=== PATIENT | female | born 1960 | race Caucasian/White ===

== ENCOUNTER → 2022-01-16 07:53 | Outpatient (BNVA) | payer BC, SELFPAY | PROVIDERS: PCP Internal Medicine; Visit Provider Orthopaedic Surgery | DX: M67.431 Ganglion, right wrist (principal) | CPT/HCPCS: 20612 ==

== ENCOUNTER 2022-05-30 06:43 | Outpatient (REF) | payer BC, SELFPAY ==
[2022-05-30 06:56] LABS: MANUAL DIFF FLAG NO
[2022-05-30 07:38] LABS: Basophils Absolute Auto 0.1 X10*3/uL (0.0-0.2); Basophils Percent Auto 1.3 % (0-2); Eosinophils Absolute Auto 0.3 X10*3/uL (0.0-0.4); Eosinophils Percent Auto 6.9 % (0-4); Hematocrit 42.7 % (37.0-47.0); Imm Gran Abs Auto 0.02 X10*3/uL (0.00-0.03); Imm Gran Pct Auto 0.4 % (0.0-0.4); Lymphocytes Absolute Auto 1.1 X10*3/uL (1.2-4.9); Lymphocytes Percent Auto 22.5 % (20-40); Mean Corpuscular HGB Conc 32.8 g/dl (31.0-35.0); Mean Corpuscular Hemoglobin 28.9 pg (27.0-33.0); Mean Platelet Volume 9.7 fL (9.4-12.3); Monocytes Absolute Auto 0.6 X10*3/uL (0.1-1.2); Neutrophils Absolute Auto 2.7 x10*3/uL (2.0-8.3); Neutrophils Percent Auto 56.9 % (45-73); Platelet Count 320 X10*3/uL (160-400); Red Blood Count 4.85 X10*6/uL (4.20-5.50); Red Cell Distribution Width 13.4 % (11.0-16.0); White Blood Count 4.8 X10*3/uL (4.8-10.8)
[2022-05-30 07:50] LABS: Alanine Aminotransferase 16 U/L (0-31); Albumin Level 4.4 g/dL (3.5-5.0); Alkaline Phosphatase 53 U/L (39-117); Anion Gap 15 (12-20); Aspartate Amino Transferase 20 U/L (5-31); Bilirubin Total 0.5 mg/dL (0.0-1.0); Blood Urea Nitrogen 14 mg/dL (9-16); Calcium 10.1 mg/dL (8.4-10.2); Carbon Dioxide 27 mmol/L (22-29); Chloride 103 mmol/L (96-108); Cholesterol 322 mg/dL; Estimated Glomerular Filt Rate > 60; Glucose Fasting 103 mg/dL (60-99); HDL Cholesterol 83 mg/dL; LDL Cholesterol Calculated 222 mg/dl; Potassium 4.4 mmol/L (3.3-5.1); Sodium 141 mmol/L (135-145); Total Protein 7.3 g/dL (6.5-8.0); Triglycerides 85 mg/dL
== END 2022-05-30 06:44 | disposition home or self-care (01) ==
LOC: HO.LAB 06:43
PROVIDERS: PCP Internal Medicine; Visit Provider Internal Medicine
DX: E03.9 Hypothyroidism, unspecified (principal); I10 Essential (primary) hypertension; E78.5 Hyperlipidemia, unspecified; Z13.0 Encounter for screening for diseases of the blood and blood-forming organs and certain disorders involving the immune mechanism
CPT/HCPCS: 36415; 80053; 80061; 84443; 85025

== ENCOUNTER 2022-11-11 10:47 | Outpatient (REF) | payer BC, SELFPAY ==
[2022-11-11 12:19] LABS: Estimated Average Glucose 108 mg/dL; Hemoglobin A1c % 5.4 %
[2022-11-11 12:34] LABS: Cholesterol 223 mg/dL; HDL Cholesterol 83 mg/dL; LDL Cholesterol Calculated 127 mg/dl; Triglycerides 65 mg/dL
== END 2022-11-11 10:48 | disposition home or self-care (01) ==
LOC: HO.LAB 10:47
PROVIDERS: PCP Internal Medicine; Visit Provider Internal Medicine
DX: R73.9 Hyperglycemia, unspecified (principal); E78.5 Hyperlipidemia, unspecified
CPT/HCPCS: 36415; 80061; 83036

== ENCOUNTER 2023-04-28 07:50 | Outpatient (AMB) | payer BC, SELFPAY ==
[2023-04-28 08:22] VITALS: BP 108/72; PULSE 57; O2SAT 98; BMI 22.2
--- NOTE | 2023-04-28 08:22 | MHC.PC.OV ---
Vital Signs 04/28/23 08:22 Height 5 ft 7 in Weight 142 lb BMI 22.2 BP 108/72 Blood Pressure Location Lt brachial Position Sitting Pulse 57 Pulse Source Pulse Oximeter Pulse Oximetry (%) 98 Oxygen Delivery Method Room Air Intake Visit Reasons: Med. 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 F/U HPI Details chronic back pain; stable; receives injections at [facility] Surgical History Hx of cervical polypectomy Family History Father Lung cancer Mother No problems noted. Social History Housing: House Alcohol intake: never Patient Tobacco Use Status: Never used Tobacco e-Cigarette/Vaping Use: Never Used Second Hand Smoke Exposure: No service: No Current occupational status: retired Current occupational exposures/hazards: No Cognitive needs: No Hearing needs: No Vision needs: No Questionnaire PHQ-9 Over the last 2 weeks, how often have you been bothered by any of the following problems? 1. Little interest or pleasure in doing things: not at all 2. Feeling down, depressed, or hopeless: not at all 3. Trouble falling or staying asleep, or sleeping too much: not at all 4. Feeling tired or having little energy: not at all 5. Poor appetite or overeating: not at all 6. Feeling bad about yourself - or that you are a failure or have let yourself or your family down: not at all 7. Trouble concentrating on things, such as reading the newspaper or watching television: not at all 8. Moving or speaking so slowly that other people could have noticed. Or the opposite - being so fidgety or restless that you have been moving around a lot more than usual: not at all 9. Thoughts that you would be better off or of hurting yourself in some way: not at all Total score: 0 Depression Screening Interpretation: Negative Source: Developed by Drs. Niranjan Jacinto, Octaviano Hussein and colleagues, with an educational piedad from [employer]. Thrive Questionnaire Date Thrive assessed: 10/14/22 JONNATHAN-7 AMB Questionnaire JONNATHAN-7 Date JONNATHAN - 7 assessed: 04/28/23 Feeling nervous, anxious, or on edge: 0 = Not at all Not being able to stop or control worryin = Not at all Worrying too much about different things: 0 = Not at all Trouble relaxin = Not at all Being so restless that it is hard to sit still: 0 = Not at all Becoming easily annoyed or irritable: 0 = Not at all Feeling afraid as if something awful might happen: 0 = Not at all Total JONNATHAN-7 score (0-4 normal; 5-9 mild; 10-14 moderate; 15-21 severe): 0 Source: Developed by Drs. Niranjan Jacinto, Octaviano Hussein and colleagues, with an educational piedad from [employer]. Review of Systems Const Denies chills, Denies headache(s) and Denies weight loss ENT Denies headache(s) Card Denies chest pain, Denies syncope, Denies irregular heart rhythm and Denies dyspnea Resp Denies chest congestion, Denies cough and Denies dyspnea GI Denies abdominal pain, Denies change in stool character, Denies nausea and Denies vomiting Musc Denies deformity and Denies joint swelling Neuro Denies syncope and Denies headache(s) Physical exam (Primary Care) Vital Signs: Last Vital Signs Pulse 57 04/28/23 08:22 BP 108/72 04/28/23 08:22 Pulse Ox 98 04/28/23 08:22 Oxygen Delivery Method Room Air 04/28/23 08:22 BMI result Body Mass Index 22.2 Tobacco/Smoking Status: Tobacco use Status Tobacco use date assessed 03/31/23 04/28/23 08:26 Patient Tobacco Use Status Never used Tobacco 04/28/23 08:26 e-Cigarette/Vaping Use Never Used 04/28/23 08:26 PHQ-9: PHQ-9 Score PHQ-9: Total score 0 04/28/23 08:26 Depression Screening Interpretation: Negative Thrive Assessment: Date of Thrive Assessment Date Thrive assessed 10/14/22 04/28/23 08:26 Const General: cooperative and comfortable Resp Auscultation: clear to auscultation bilaterally Percussion: percussion normal Cardio Jugular venous distension: no JVD Rate: regular rate Rhythm: regular rhythm GI Inspection: Yes normal to inspection Assessment and Plan Assessment & Plan (1) Back pain: Code(s): M54.9 - Dorsalgia, unspecified Plan: stable; same rx Medications: Refilled oxycodone-acetaminophen 5-325 mg (Percocet) partial ok 1 tab PO Q8H PRN 90 tabs 0RF pain 28 days Coding Level of Care Code Est Pt Level 3 (88461) Diagnoses Back pain M54.9 Additional Codes PHQ-9 - 89496 - PHQ-9 Billing: Y ([id number])
== END 2023-04-28 09:09 | disposition home or self-care (01) ==
PROVIDERS: PCP Internal Medicine; Visit Provider Internal Medicine
DX: M54.9 Dorsalgia, unspecified (principal)
CPT/HCPCS: 99213

== ENCOUNTER 2023-07-04 09:27 | Outpatient (AMB) | payer BC, SELFPAY ==
[2023-07-04 09:30] VITALS: BP 98/60; PULSE 87; O2SAT 98; BMI 22.2
--- NOTE | 2023-07-04 09:30 | MHC.PC.OV ---
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 Accompanied by: Self / Same As Patient Allergies No Known Allergies Allergy (Verified 07/04/23 09:30) Medication List - Last Reconciled 07/04/23 by Mc Albert MD atorvastatin 40 mg PO DAILY oxycodone-acetaminophen 5-325 mg (Percocet) 1 tab PO Q8H PRN 28 days Tobacco use date assessed: 03/31/23 Dental Screening Dental Screen Date: 07/04/23 Did you have a dental visit in the last 12 months?: Yes Did you have a dental problem in the last 6 months where you did not have access to dental care?: No Was dental information given to patient?: Patient has dentist HPI Med Review HPI Details chronic back pain on rx; doing well PFSH Surgical History Hx of cervical polypectomy Family History Father Lung cancer Mother No problems noted. Social History Housing: House Alcohol intake: never Patient Tobacco Use Status: Never used Tobacco e-Cigarette/Vaping Use: Never Used Second Hand Smoke Exposure: No service: No Current occupational status: retired Current occupational exposures/hazards: No Cognitive needs: No Hearing needs: No Vision needs: No Questionnaire PHQ-9 Over the last 2 weeks, how often have you been bothered by any of the following problems? 1. Little interest or pleasure in doing things: not at all 2. Feeling down, depressed, or hopeless: not at all 3. Trouble falling or staying asleep, or sleeping too much: not at all 4. Feeling tired or having little energy: not at all 5. Poor appetite or overeating: not at all 6. Feeling bad about yourself - or that you are a failure or have let yourself or your family down: not at all 7. Trouble concentrating on things, such as reading the newspaper or watching television: not at all 8. Moving or speaking so slowly that other people could have noticed. Or the opposite - being so fidgety or restless that you have been moving around a lot more than usual: not at all 9. Thoughts that you would be better off or of hurting yourself in some way: not at all Total score: 0 Depression Screening Interpretation: Negative Depression Screening Done: Yes Source: Developed by Drs. Niranjan Jacinto, Claudette Gilmore, Octaviano Wagner and colleagues, with an educational piedad from [employer]. Thrive Questionnaire Date Thrive assessed: 10/14/22 AUDIT C Alcohol Use Questionnaire (AUDIT-C) 1. How often do you have a drink containing alcohol?: 2-4 times a month 2. How many drinks containing alcohol do you have on a typical day when you are drinking?: 1 or 2 3. How often do you have six or more drinks on one occasion?: Never Total Score: 2 Score Reviewed/Action Taken: Yes JONNATHAN-7 AMB Questionnaire JONNATHAN-7 Date JONNATHAN - 7 assessed: 04/28/23 Source: Developed by Drs. Niranjan Jacinto, Claudette Gilmore, Octaviano Wagner and colleagues, with an educational piedad from [employer]. Review of Systems Const Denies chills, Denies headache(s) and Denies weight loss ENT Denies headache(s) Card Denies chest pain, Denies syncope, Denies irregular heart rhythm and Denies dyspnea Resp Denies chest congestion, Denies cough and Denies dyspnea GI Denies abdominal pain, Denies change in stool character, Denies nausea and Denies vomiting Musc Denies deformity and Denies joint swelling Neuro Denies syncope and Denies headache(s) Physical exam (Primary Care) Vital Signs: Last Vital Signs Pulse 87 07/04/23 09:30 BP 98/60 07/04/23 09:30 Pulse Ox 98 07/04/23 09:30 Oxygen Delivery Method Room Air 07/04/23 09:30 BMI result Body Mass Index 22.2 Tobacco/Smoking Status: Tobacco use Status Tobacco use date assessed 03/31/23 07/04/23 09:34 Patient Tobacco Use Status Never used Tobacco 07/04/23 09:34 e-Cigarette/Vaping Use Never Used 07/04/23 09:34 PHQ-9: PHQ-9 Score PHQ-9: Total score 0 07/04/23 09:47 Depression Screening Interpretation: Negative Thrive Assessment: Date of Thrive Assessment Date Thrive assessed 10/14/22 07/04/23 09:34 Const General: cooperative, comfortable, no acute distress and alert Neck Neck: Yes no lymphadenopathy Thyroid: Thyroid normal Resp Effort & Inspection: normal respiratory effort Auscultation: clear to auscultation bilaterally Percussion: percussion normal Cardio Jugular venous distension: no JVD Palpation: normal PMI Rate: regular rate Rhythm: regular rhythm Heart sounds: S1 normal heart sound present and S2 normal heart sound present GI Inspection: Yes normal to inspection Palpation (GI): No hepatosplenomegaly present Skin General skin exam: no rashes or lesions noted Extrem General: Yes no clubbing, cyanosis or edema Office Procedures Flu Questionnaire Does the patient have a severe egg allergy?: No Does the patient have severe life threatening allergies?: No Does the patient have a fever or illness today?: No Has the patient ever had Guillain-G[place] Syndrome?: No Has the patient ever had any past reaction to a flu shot?: No Immunizations flu vacc [id number] 6mos up(PF) 60 mcg(15 mcgx4)/0.5 mL IM syringe Performing Provider: Mc Albert MD Performing Location: [facility] Administered by: KUSUM Wilkes on 07/04/23 09:47 Dose Route Admin Location Dispensed Lot Number Expiration Date NDC Test Conductor 0.5 mL IM Left Deltoid 0.5 mL [id number] 03/28/24 [id number] [employer] VIS Given Date VIS Provided VIS Publication Date 07/04/23 Single Vaccine 21 Eligibility Eligibility Date Funding Source Not [facility] Eligible 07/04/23 Private Assessment and Plan Assessment & Plan (1) Back pain: Code(s): M54.9 - Dorsalgia, unspecified Plan: stable; same rx Orders: Orders Influenza [id number] Immunization Today Z23 - Encounter for immunization Medications: Refilled oxycodone-acetaminophen 5-325 mg (Percocet) partial ok 1 tab PO Q8H PRN 90 tabs 0RF pain 28 days Coding Level of Care Code Est Pt Level 3 (28740) Diagnoses Back pain M54.9 Additional Codes PHQ-9 - 51586 - PHQ-9 Billing: ([id number])
== END 2023-07-04 10:23 | disposition home or self-care (01) ==
PROVIDERS: PCP Internal Medicine; Visit Provider Internal Medicine
DX: Z23 Encounter for immunization (principal); M54.9 Dorsalgia, unspecified
CPT/HCPCS: 90471; 90686; 99213

== ENCOUNTER 2023-08-04 08:49 | Outpatient (AMB) | payer BC, SELFPAY ==
[2023-08-04 08:56] VITALS: BP 120/62; PULSE 55; O2SAT 97; BMI 21.9
--- NOTE | 2023-08-04 08:56 | MHC.PC.OV ---
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 Accompanied by: Self / Same As Patient Allergies No Known Allergies Allergy (Verified 08/04/23 08:56) Medication List - Last Reconciled 08/04/23 by Mc Albert MD atorvastatin 40 mg PO DAILY oxycodone-acetaminophen 5-325 mg (Percocet) 1 tab PO Q8H PRN 28 days Tobacco use date assessed: 03/31/23 Dental Screening Dental Screen Date: 08/04/23 Did you have a dental visit in the last 12 months?: Yes Did you have a dental problem in the last 6 months where you did not have access to dental care?: No Was dental information given to patient?: Patient has dentist HPI Med Review HPI Details chronic back pain on pain management; stable on rx PFSH Surgical History Hx of cervical polypectomy Family History Father Lung cancer Mother No problems noted. Social History Housing: House Alcohol intake: never Patient Tobacco Use Status: Never used Tobacco e-Cigarette/Vaping Use: Never Used Second Hand Smoke Exposure: No service: No Current occupational status: retired Current occupational exposures/hazards: No Cognitive needs: No Hearing needs: No Vision needs: No Questionnaire PHQ-9 Over the last 2 weeks, how often have you been bothered by any of the following problems? 1. Little interest or pleasure in doing things: not at all 2. Feeling down, depressed, or hopeless: not at all 3. Trouble falling or staying asleep, or sleeping too much: not at all 4. Feeling tired or having little energy: not at all 5. Poor appetite or overeating: not at all 6. Feeling bad about yourself - or that you are a failure or have let yourself or your family down: not at all 7. Trouble concentrating on things, such as reading the newspaper or watching television: not at all 8. Moving or speaking so slowly that other people could have noticed. Or the opposite - being so fidgety or restless that you have been moving around a lot more than usual: not at all 9. Thoughts that you would be better off or of hurting yourself in some way: not at all Total score: 0 Depression Screening Interpretation: Negative Depression Screening Done: Yes Source: Developed by Drs. Niranjan Jacinto, Claudette Gilmore, Octaviano Wagner and colleagues, with an educational piedad from [employer]. Thrive Questionnaire Date Thrive assessed: 10/14/22 AUDIT C Alcohol Use Questionnaire (AUDIT-C) 1. How often do you have a drink containing alcohol?: 2-4 times a month 2. How many drinks containing alcohol do you have on a typical day when you are drinking?: 1 or 2 3. How often do you have six or more drinks on one occasion?: Never Total Score: 2 Score Reviewed/Action Taken: Yes JONNATHAN-7 AMB Questionnaire JONNATHAN-7 Date JONNATHAN - 7 assessed: 04/28/23 Source: Developed by Drs. Niranjan Jacinto, Claudette Gilmore, Octaviano Wagner and colleagues, with an educational piedad from [employer]. Review of Systems Const Denies chills, Denies headache(s) and Denies weight loss ENT Denies headache(s) Card Denies chest pain, Denies syncope, Denies irregular heart rhythm and Denies dyspnea Resp Denies chest congestion, Denies cough and Denies dyspnea GI Denies abdominal pain, Denies change in stool character, Denies nausea and Denies vomiting Musc Denies deformity and Denies joint swelling Neuro Denies syncope and Denies headache(s) Physical exam (Primary Care) Vital Signs: Last Vital Signs Pulse 55 08/04/23 08:56 BP 120/62 08/04/23 08:56 Pulse Ox 97 08/04/23 08:56 Oxygen Delivery Method Room Air 08/04/23 08:56 BMI result Body Mass Index 21.9 Tobacco/Smoking Status: Tobacco use Status Tobacco use date assessed 03/31/23 08/04/23 08:57 Patient Tobacco Use Status Never used Tobacco 08/04/23 08:57 e-Cigarette/Vaping Use Never Used 08/04/23 08:57 PHQ-9: PHQ-9 Score PHQ-9: Total score 0 08/04/23 08:57 Depression Screening Interpretation: Negative Thrive Assessment: Date of Thrive Assessment Date Thrive assessed 10/14/22 08/04/23 08:57 Const General: cooperative, comfortable, no acute distress and alert Neck Neck: Yes no lymphadenopathy Thyroid: Thyroid normal Resp Effort & Inspection: normal respiratory effort Auscultation: clear to auscultation bilaterally Percussion: percussion normal Cardio Jugular venous distension: no JVD Palpation: normal PMI Rate: regular rate Rhythm: regular rhythm Heart sounds: S1 normal heart sound present and S2 normal heart sound present GI Inspection: Yes normal to inspection Palpation (GI): No hepatosplenomegaly present Skin General skin exam: no rashes or lesions noted Extrem General: Yes no clubbing, cyanosis or edema Assessment and Plan Assessment & Plan (1) Back pain: Code(s): M54.9 - Dorsalgia, unspecified Plan: stable; same rx Medications: Refilled oxycodone-acetaminophen 5-325 mg (Percocet) partial ok 1 tab PO Q8H 28 days PRN 90 tabs 0RF pain Coding Level of Care Code Est Pt Level 3 (61165) Diagnoses Back pain M54.9 Additional Codes PHQ-9 - 17089 - PHQ-9 Billing: ([id number])
== END 2023-08-04 09:08 | disposition home or self-care (01) ==
PROVIDERS: PCP Internal Medicine; Visit Provider Internal Medicine
DX: M54.9 Dorsalgia, unspecified (principal)
CPT/HCPCS: 99213

== ENCOUNTER 2023-09-03 08:07 | Outpatient (AMB) | payer BC, SELFPAY ==
--- NOTE | 2023-09-03 08:32 | MHC.PC.OV ---
Vital Signs 09/03/23 08:33 Height 5 ft 7 in Weight 142 lb BMI 22.2 BP 100/64 Blood Pressure Location Lt brachial Position Sitting Pulse 85 Pulse Source Pulse Oximeter Pulse Oximetry (%) 98 Oxygen Delivery Method Room Air Intake Visit Reasons: med review President And Chief Executive Officer Required: No Human Relations Professor: Not Required per policy Accompanied by: Self / Same As Patient Allergies No Known Allergies Allergy (Verified 09/03/23 08:33) Tobacco use date assessed: 03/31/23 Dental Screening Dental Screen Date: 09/03/23 Did you have a dental visit in the last 12 months?: Yes Did you have a dental problem in the last 6 months where you did not have access to dental care?: No Was dental information given to patient?: Patient has dentist HPI med review HPI Details f/u chronic back pain; doing well on rx; compliant PFSH Surgical History Hx of cervical polypectomy Family History Father Lung cancer Mother No problems noted. Social History Housing: House Alcohol intake: never Patient Tobacco Use Status: Never used Tobacco e-Cigarette/Vaping Use: Never Used Second Hand Smoke Exposure: No service: No Current occupational status: retired Current occupational exposures/hazards: No Cognitive needs: No Hearing needs: No Vision needs: No Questionnaire Thrive Questionnaire Date Thrive assessed: 10/14/22 JONNATHAN-7 AMB Questionnaire JONNATHAN-7 Date JONNATHAN - 7 assessed: 04/28/23 Source: Developed by Drs. Niranjan Jacinto, Claudette Gilmore, Octaviano Wagner and colleagues, with an educational piedad from [employer]. Review of Systems Const Denies chills, Denies headache(s) and Denies weight loss ENT Denies headache(s) Card Denies chest pain, Denies syncope, Denies irregular heart rhythm and Denies dyspnea Resp Denies chest congestion, Denies cough and Denies dyspnea GI Denies abdominal pain, Denies change in stool character, Denies nausea and Denies vomiting Musc Denies deformity and Denies joint swelling Neuro Denies syncope and Denies headache(s) Physical exam (Primary Care) Vital Signs: Last Vital Signs Pulse 85 09/03/23 08:33 BP 100/64 09/03/23 08:33 Pulse Ox 98 09/03/23 08:33 Oxygen Delivery Method Room Air 09/03/23 08:33 BMI result Body Mass Index 22.2 Tobacco/Smoking Status: Tobacco use Status Tobacco use date assessed 03/31/23 09/03/23 08:35 Patient Tobacco Use Status Never used Tobacco 09/03/23 08:35 e-Cigarette/Vaping Use Never Used 09/03/23 08:35 Thrive Assessment: Date of Thrive Assessment Date Thrive assessed 10/14/22 09/03/23 08:35 Const General: cooperative, comfortable, no acute distress and alert Neck Neck: Yes no lymphadenopathy Thyroid: Thyroid normal Resp Effort & Inspection: normal respiratory effort Auscultation: clear to auscultation bilaterally Percussion: percussion normal Cardio Jugular venous distension: no JVD Palpation: normal PMI Rate: regular rate Rhythm: regular rhythm Heart sounds: S1 normal heart sound present and S2 normal heart sound present GI Inspection: Yes normal to inspection Palpation (GI): No hepatosplenomegaly present Skin General skin exam: no rashes or lesions noted Extrem General: Yes no clubbing, cyanosis or edema Assessment and Plan Assessment & Plan (1) Back pain: Code(s): M54.9 - Dorsalgia, unspecified Plan: stable; same rx Medications: Refilled oxycodone-acetaminophen 5-325 mg (Percocet) partial ok 1 tab PO Q8H PRN 90 tabs 0RF pain 28 days Coding Level of Care Code Est Pt Level 3 (45202) Diagnoses Back pain M54.9
[2023-09-03 08:33] VITALS: BP 100/64; PULSE 85; O2SAT 98; BMI 22.2
== END 2023-09-03 09:29 | disposition home or self-care (01) ==
PROVIDERS: PCP Internal Medicine; Visit Provider Internal Medicine
DX: M54.9 Dorsalgia, unspecified (principal)
CPT/HCPCS: 99213

== ENCOUNTER 2023-10-06 08:55 | Outpatient (AMB) | payer BC, SELFPAY ==
[2023-10-06 09:03] VITALS: BP 100/58; PULSE 68; O2SAT 96; BMI 22.4
--- NOTE | 2023-10-06 09:03 | MHC.PC.OV ---
Vital Signs 10/06/23 09:03 Height 5 ft 7 in Weight 143 lb BMI 22.4 BP 100/58 L Blood Pressure Location Lt brachial Position Sitting Pulse 68 Pulse Source Pulse Oximeter Pulse Oximetry (%) 96 Oxygen Delivery Method Room Air Intake Visit Reasons: med review Educational Interpreter Required: No Pearl Cutter: Not Required per policy Accompanied by: Self / Same As Patient Allergies No Known Allergies Allergy (Verified 10/06/23 09:03) Medication List - Last Reconciled 10/06/23 by Mc Albert MD atorvastatin 40 mg PO DAILY oxycodone-acetaminophen 5-325 mg (Percocet) 1 tab PO Q8H PRN 28 days Tobacco use date assessed: 03/31/23 Dental Screening Dental Screen Date: 10/06/23 Did you have a dental visit in the last 12 months?: Yes Did you have a dental problem in the last 6 months where you did not have access to dental care?: No Was dental information given to patient?: Patient has dentist HPI med review HPI Details f/u chronic back [ain; compliant with regimen PFSH Surgical History Hx of cervical polypectomy Family History Father Lung cancer Mother No problems noted. Social History Housing: House Alcohol intake: never Patient Tobacco Use Status: Never used Tobacco e-Cigarette/Vaping Use: Never Used Second Hand Smoke Exposure: No service: No Current occupational status: retired Current occupational exposures/hazards: No Cognitive needs: No Hearing needs: No Vision needs: No Questionnaire PHQ-9 Over the last 2 weeks, how often have you been bothered by any of the following problems? 1. Little interest or pleasure in doing things: not at all 2. Feeling down, depressed, or hopeless: not at all 3. Trouble falling or staying asleep, or sleeping too much: not at all 4. Feeling tired or having little energy: not at all 5. Poor appetite or overeating: not at all 6. Feeling bad about yourself - or that you are a failure or have let yourself or your family down: not at all 7. Trouble concentrating on things, such as reading the newspaper or watching television: not at all 8. Moving or speaking so slowly that other people could have noticed. Or the opposite - being so fidgety or restless that you have been moving around a lot more than usual: not at all 9. Thoughts that you would be better off or of hurting yourself in some way: not at all Total score: 0 Depression Screening Interpretation: Negative Depression Screening Done: Yes Source: Developed by Drs. Niranjan Jacinto, Claudette Gilmore, Octaviano Wagner and colleagues, with an educational piedad from [employer]. Thrive Questionnaire Date Thrive assessed: 10/06/23 I am a: Patient What is your living situation today?: I have a steady place to live Within the past 12 months, did the food you bought not last and you didn't have the money to get more?: Never true Within the past 12 months, did you worry whether your food would run out before you got money to buy more?: Never true Do you have trouble paying for medicines?: No Do you have trouble getting transportation to medical appointments?: No Do you have trouble paying your heating and electricity bill?: No Do you have trouble taking care of your child, family member or friend?: No Do you have trouble with day-to-day activities such as bathing, preparing meals, shopping, managing finances, etc.?: No Are you currently unemployed and looking for a job?: No Are you interested in more education?: No Please select the resources that you would like help with: None AUDIT C Alcohol Use Questionnaire (AUDIT-C) 1. How often do you have a drink containing alcohol?: 2-4 times a month 2. How many drinks containing alcohol do you have on a typical day when you are drinking?: 1 or 2 3. How often do you have six or more drinks on one occasion?: Never Total Score: 2 Score Reviewed/Action Taken: Yes JONNATHAN-7 AMB Questionnaire JONNATHAN-7 Date JONNATHAN - 7 assessed: 10/06/23 Feeling nervous, anxious, or on edge: 0 = Not at all Not being able to stop or control worryin = Not at all Worrying too much about different things: 0 = Not at all Trouble relaxin = Not at all Being so restless that it is hard to sit still: 0 = Not at all Becoming easily annoyed or irritable: 0 = Not at all Feeling afraid as if something awful might happen: 0 = Not at all Total JONNATHAN-7 score (0-4 normal; 5-9 mild; 10-14 moderate; 15-21 severe): 0 Source: Developed by Drs. Niranjan Jacinto, Claudette Gilmore, Octaviano Wagner and colleagues, with an educational piedad from [employer]. Review of Systems Const Denies chills, Denies headache(s) and Denies weight loss ENT Denies headache(s) Card Denies chest pain, Denies syncope, Denies irregular heart rhythm and Denies dyspnea Resp Denies chest congestion, Denies cough and Denies dyspnea GI Denies abdominal pain, Denies change in stool character, Denies nausea and Denies vomiting Musc Denies deformity and Denies joint swelling Neuro Denies syncope and Denies headache(s) Physical exam (Primary Care) Vital Signs: Last Vital Signs Pulse 68 10/06/23 09:03 BP 100/58 L 10/06/23 09:03 Pulse Ox 96 10/06/23 09:03 Oxygen Delivery Method Room Air 10/06/23 09:03 BMI result Body Mass Index 22.4 Tobacco/Smoking Status: Tobacco use Status Tobacco use date assessed 03/31/23 10/06/23 09:04 Patient Tobacco Use Status Never used Tobacco 10/06/23 09:04 e-Cigarette/Vaping Use Never Used 10/06/23 09:04 PHQ-9: PHQ-9 Score PHQ-9: Total score 0 10/06/23 09:04 Depression Screening Interpretation: Negative Thrive Assessment: Date of Thrive Assessment Date Thrive assessed 10/06/23 10/06/23 09:04 Const General: cooperative, comfortable, no acute distress and alert Neck Neck: Yes no lymphadenopathy Thyroid: Thyroid normal Resp Effort & Inspection: normal respiratory effort Auscultation: clear to auscultation bilaterally Percussion: percussion normal Cardio Jugular venous distension: no JVD Palpation: normal PMI Rate: regular rate Rhythm: regular rhythm Heart sounds: S1 normal heart sound present and S2 normal heart sound present GI Inspection: Yes normal to inspection Palpation (GI): No hepatosplenomegaly present Skin General skin exam: no rashes or lesions noted Extrem General: Yes no clubbing, cyanosis or edema Assessment and Plan Assessment & Plan (1) Back pain: Code(s): M54.9 - Dorsalgia, unspecified Plan: stable; same rx Medications: Refilled oxycodone-acetaminophen 5-325 mg (Percocet) partial ok 1 tab PO Q8H PRN 90 tabs 0RF pain 28 days Coding Level of Care Code Est Pt Level 3 (41023) Diagnoses Back pain M54.9 Additional Codes PHQ-9 - 20175 - PHQ-9 Billing: ([id number])
== END 2023-10-06 10:23 | disposition home or self-care (01) ==
PROVIDERS: PCP Internal Medicine; Visit Provider Internal Medicine
DX: M54.9 Dorsalgia, unspecified (principal)
CPT/HCPCS: 99213

== ENCOUNTER 2023-11-04 10:20 | Outpatient (AMB) | payer BC, SELFPAY ==
--- NOTE | 2023-11-04 10:21 | MHC.PC.OV ---
Vital Signs 11/04/23 10:22 Height 5 ft 7 in Weight 144 lb BMI 22.6 BP 110/62 Blood Pressure Location Lt brachial Position Sitting Pulse 63 Pulse Source Pulse Oximeter Pulse Oximetry (%) 98 Oxygen Delivery Method Room Air Intake Visit Reasons: med review Salesperson Furniture Required: No Restaurant Crew Person: Not Required per policy Accompanied by: Self / Same As Patient Allergies No Known Allergies Allergy (Verified 11/04/23 10:22) Medication List - Last Reconciled 11/04/23 by Mc Albert MD atorvastatin 40 mg PO DAILY oxycodone-acetaminophen 5-325 mg (Percocet) 1 tab PO Q8H PRN 28 days Tobacco use date assessed: 11/04/23 Dental Screening Dental Screen Date: 11/04/23 Did you have a dental visit in the last 12 months?: Yes Did you have a dental problem in the last 6 months where you did not have access to dental care?: No Was dental information given to patient?: Patient has dentist HPI med review HPI Details chronic back pain on Rx; doing well and comp;iant PFSH Surgical History Hx of cervical polypectomy Family History Father Lung cancer Mother No problems noted. Social History Housing: House Alcohol intake: never Patient Tobacco Use Status: Never used Tobacco e-Cigarette/Vaping Use: Never Used Second Hand Smoke Exposure: No service: No Current occupational status: retired Current occupational exposures/hazards: No Cognitive needs: No Hearing needs: No Vision needs: No Questionnaire Thrive Questionnaire Date Thrive assessed: 10/06/23 JONNATHAN-7 AMB Questionnaire JONNATHAN-7 Date JONNATHAN - 7 assessed: 10/06/23 Source: Developed by Drs. Niranjan Jacinto, Claudette Gilmore, Octaviano Wagner and colleagues, with an educational piedad from [employer]. Review of Systems Const Denies chills, Denies headache(s) and Denies weight loss ENT Denies headache(s) Card Denies chest pain, Denies syncope, Denies irregular heart rhythm and Denies dyspnea Resp Denies chest congestion, Denies cough and Denies dyspnea GI Denies abdominal pain, Denies change in stool character, Denies nausea and Denies vomiting Musc Denies deformity and Denies joint swelling Neuro Denies syncope and Denies headache(s) Physical exam (Primary Care) Vital Signs: Last Vital Signs Pulse 63 11/04/23 10:22 BP 110/62 11/04/23 10:22 Pulse Ox 98 11/04/23 10:22 Oxygen Delivery Method Room Air 11/04/23 10:22 BMI result Body Mass Index 22.6 Tobacco/Smoking Status: Tobacco use Status Tobacco use date assessed 11/04/23 11/04/23 10:23 Patient Tobacco Use Status Never used Tobacco 11/04/23 10:23 e-Cigarette/Vaping Use Never Used 11/04/23 10:23 Thrive Assessment: Date of Thrive Assessment Date Thrive assessed 10/06/23 11/04/23 10:23 Const General: cooperative, comfortable, no acute distress and alert Neck Neck: Yes no lymphadenopathy Thyroid: Thyroid normal Resp Effort & Inspection: normal respiratory effort Auscultation: clear to auscultation bilaterally Percussion: percussion normal Cardio Jugular venous distension: no JVD Palpation: normal PMI Rate: regular rate Rhythm: regular rhythm Heart sounds: S1 normal heart sound present and S2 normal heart sound present GI Inspection: Yes normal to inspection Palpation (GI): No hepatosplenomegaly present Skin General skin exam: no rashes or lesions noted Extrem General: Yes no clubbing, cyanosis or edema Assessment and Plan Assessment & Plan (1) Back pain: Code(s): M54.9 - Dorsalgia, unspecified Plan: stable; same rx Medications: Refilled oxycodone-acetaminophen 5-325 mg (Percocet) partial ok 1 tab PO Q8H 28 days PRN 90 tabs 0RF pain oxycodone-acetaminophen 5-325 mg (Percocet) partial ok 1 tab PO Q8H PRN 90 tabs 0RF pain 28 days Coding Level of Care Code Est Pt Level 3 (85201) Diagnoses Back pain M54.9
[2023-11-04 10:22] VITALS: BP 110/62; PULSE 63; O2SAT 98; BMI 22.6
== END 2023-11-04 11:30 | disposition home or self-care (01) ==
PROVIDERS: PCP Internal Medicine; Visit Provider Internal Medicine
DX: M54.9 Dorsalgia, unspecified (principal)
CPT/HCPCS: 99213

== ENCOUNTER 2024-01-05 09:26 | Outpatient (AMB) | payer BC, SELFPAY ==
[2024-01-05 09:29] VITALS: BP 110/62; PULSE 61; O2SAT 98; BMI 22.7
--- NOTE | 2024-01-05 09:29 | A.OFFPC_ITS ---
Vital Signs 01/05/24 09:29 Height 5 ft 7 in Weight 145 lb 0.8 oz BMI 22.7 BP 110/62 Blood Pressure Location Lt brachial Position Sitting Pulse 61 Pulse Source Pulse Oximeter Pulse Oximetry (%) 98 Oxygen Delivery Method Room Air Intake Visit Reasons: med review Intake Note: Patient is here to follow up on med review Returning Officer Required: No Allergies No Known Allergies Allergy (Verified 01/05/24 09:29) Medication List - Last Reconciled 01/05/24 by Mc Albert MD atorvastatin 40 mg PO DAILY oxycodone-acetaminophen 5-325 mg (Percocet) 1 tab PO Q8H PRN 28 days Tobacco use date assessed: 01/05/24 Dental Screening Dental Screen Date: 11/04/23 Did you have a dental visit in the last 12 months?: Yes Did you have a dental problem in the last 6 months where you did not have access to dental care?: No Was dental information given to patient?: Patient has dentist HPI med review HPI Details chronic back pain on rx; doing well nd compliant PENDING SALE TO [facility] Surgical History Hx of cervical polypectomy Family History Father Lung cancer Mother No problems noted. Social History Housing: House Alcohol intake: never Patient Tobacco Use Status: Never used Tobacco e-Cigarette/Vaping Use: Never Used Second Hand Smoke Exposure: No service: No Current occupational status: retired Current occupational exposures/hazards: No Cognitive needs: No Hearing needs: No Vision needs: No Questionnaire PHQ-9 Over the last 2 weeks, how often have you been bothered by any of the following problems? 1. Little interest or pleasure in doing things: not at all 2. Feeling down, depressed, or hopeless: not at all 3. Trouble falling or staying asleep, or sleeping too much: not at all 4. Feeling tired or having little energy: not at all 5. Poor appetite or overeating: not at all 6. Feeling bad about yourself - or that you are a failure or have let yourself or your family down: not at all 7. Trouble concentrating on things, such as reading the newspaper or watching television: not at all 8. Moving or speaking so slowly that other people could have noticed. Or the opposite - being so fidgety or restless that you have been moving around a lot more than usual: not at all 9. Thoughts that you would be better off or of hurting yourself in some way: not at all Total score: 0 Depression Screening Interpretation: Negative Depression Screening Done: Yes Source: Developed by Drs. Niranjan Jacinto, Claudette Gilmore, Octaviano Wagner and colleagues, with an educational piedad from [employer]. Thrive Questionnaire Date Thrive assessed: 10/06/23 AUDIT C Alcohol Use Questionnaire (AUDIT-C) 1. How often do you have a drink containing alcohol?: 2-4 times a month 2. How many drinks containing alcohol do you have on a typical day when you are drinking?: 1 or 2 3. How often do you have six or more drinks on one occasion?: Never Total Score: 2 Score Reviewed/Action Taken: Yes JONNATHAN-7 AMB Questionnaire JONNATHAN-7 Date JONNATHAN - 7 assessed: 10/06/23 Source: Developed by Drs. Niranjan Jacinto, Claudette Gilmore, Octaviano Wagner and colleagues, with an educational piedad from [employer]. Review of Systems Const Denies chills, Denies headache(s) and Denies weight loss ENT Denies headache(s) Card Denies chest pain, Denies syncope, Denies irregular heart rhythm and Denies dyspnea Resp Denies chest congestion, Denies cough and Denies dyspnea GI Denies abdominal pain, Denies change in stool character, Denies nausea and Denies vomiting Musc Denies deformity and Denies joint swelling Neuro Denies syncope and Denies headache(s) Physical exam (Primary Care) Vital Signs: Last Vital Signs Pulse 61 01/05/24 09:29 BP 110/62 01/05/24 09:29 Pulse Ox 98 01/05/24 09:29 Oxygen Delivery Method Room Air 01/05/24 09:29 BMI result Body Mass Index 22.7 Tobacco/Smoking Status: Tobacco use Status Tobacco use date assessed 01/05/24 01/05/24 09:35 Patient Tobacco Use Status Never used Tobacco 01/05/24 09:35 e-Cigarette/Vaping Use Never Used 01/05/24 09:35 PHQ-9: PHQ-9 Score PHQ-9: Total score 0 01/05/24 09:35 Depression Screening Interpretation: Negative Thrive Assessment: Date of Thrive Assessment Date Thrive assessed 10/06/23 01/05/24 09:35 Const General: cooperative, comfortable, no acute distress and alert Neck Neck: Yes no lymphadenopathy Thyroid: Thyroid normal Resp Effort & Inspection: normal respiratory effort Auscultation: clear to auscultation bilaterally Percussion: percussion normal Cardio Jugular venous distension: no JVD Palpation: normal PMI Rate: regular rate Rhythm: regular rhythm Heart sounds: S1 normal heart sound present and S2 normal heart sound present GI Inspection: Yes normal to inspection Palpation (GI): No hepatosplenomegaly present Skin General skin exam: no rashes or lesions noted Extrem General: Yes no clubbing, cyanosis or edema Assessment and Plan Assessment & Plan (1) Back pain: Code(s): M54.9 - Dorsalgia, unspecified Plan: stable; same rx Medications: Refilled oxycodone-acetaminophen 5-325 mg (Percocet) partial ok 1 tab PO Q8H 28 days PRN 90 tabs 0RF pain Coding Level of Care Code Est Pt Level 3 (83691) Diagnoses Back pain M54.9 Additional Codes PHQ-9 - 91106 - PHQ-9 Billing: ([id number])
== END 2024-01-05 10:52 | disposition home or self-care (01) ==
PROVIDERS: PCP Internal Medicine; Visit Provider Internal Medicine
DX: M54.9 Dorsalgia, unspecified (principal)
CPT/HCPCS: 99213

== ENCOUNTER 2024-02-02 10:25 | Outpatient (AMB) | payer BC, SELFPAY ==
[2024-02-02 10:26] VITALS: BP 94/62; PULSE 65; O2SAT 98; BMI 23.0
--- NOTE | 2024-02-02 10:26 | MHC.PC.OV ---
Vital Signs 02/02/24 10:26 Height 5 ft 7 in Weight 147 lb BMI 23.0 BP 94/62 Blood Pressure Location Lt brachial Position Sitting Pulse 65 Pulse Source Pulse Oximeter Pulse Oximetry (%) 98 Oxygen Delivery Method Room Air Intake Visit Reasons: Med Review Legal Word Processor Required: No Napper Runner: Not Required per policy Accompanied by: Self / Same As Patient Allergies No Known Allergies Allergy (Verified 02/02/24 10:26) Medication List - Last Reconciled 02/02/24 by Mc Albert MD atorvastatin 40 mg PO DAILY oxycodone-acetaminophen 5-325 mg (Percocet) 1 tab PO Q8H PRN 28 days Tobacco use date assessed: 01/05/24 Dental Screening Dental Screen Date: 11/04/23 HPI Med Review HPI Details chronic back pain on rx; compliant and doing well PFSH Surgical History Hx of cervical polypectomy Family History Father Lung cancer Mother No problems noted. Social History Housing: House Alcohol intake: never Patient Tobacco Use Status: Never used Tobacco e-Cigarette/Vaping Use: Never Used Second Hand Smoke Exposure: No service: No Current occupational status: retired Current occupational exposures/hazards: No Cognitive needs: No Hearing needs: No Vision needs: No Questionnaire Thrive Questionnaire Date Thrive assessed: 10/06/23 JONNATHAN-7 AMB Questionnaire JONNATHAN-7 Date JONNATHAN - 7 assessed: 10/06/23 Source: Developed by Drs. Niranjan Jacinto, Claudette Gilmore, Octaviano Wagner and colleagues, with an educational piedad from [employer]. Review of Systems Const Denies chills, Denies headache(s) and Denies weight loss ENT Denies headache(s) Card Denies chest pain, Denies syncope, Denies irregular heart rhythm and Denies dyspnea Resp Denies chest congestion, Denies cough and Denies dyspnea GI Denies abdominal pain, Denies change in stool character, Denies nausea and Denies vomiting Musc Denies deformity and Denies joint swelling Neuro Denies syncope and Denies headache(s) Physical exam (Primary Care) Vital Signs: Last Vital Signs Pulse 65 02/02/24 10:26 BP 94/62 02/02/24 10:26 Pulse Ox 98 02/02/24 10:26 Oxygen Delivery Method Room Air 02/02/24 10:26 BMI result Body Mass Index 23.0 Tobacco/Smoking Status: Tobacco use Status Tobacco use date assessed 01/05/24 02/02/24 10:27 Patient Tobacco Use Status Never used Tobacco 02/02/24 10:27 e-Cigarette/Vaping Use Never Used 02/02/24 10:27 Thrive Assessment: Date of Thrive Assessment Date Thrive assessed 10/06/23 02/02/24 10:27 Const General: cooperative, comfortable, no acute distress and alert Neck Neck: Yes no lymphadenopathy Thyroid: Thyroid normal Resp Effort & Inspection: normal respiratory effort Auscultation: clear to auscultation bilaterally Percussion: percussion normal Cardio Jugular venous distension: no JVD Palpation: normal PMI Rate: regular rate Rhythm: regular rhythm Heart sounds: S1 normal heart sound present and S2 normal heart sound present GI Inspection: Yes normal to inspection Palpation (GI): No hepatosplenomegaly present Skin General skin exam: no rashes or lesions noted Extrem General: Yes no clubbing, cyanosis or edema Assessment and Plan Assessment & Plan (1) Back pain: Code(s): M54.9 - Dorsalgia, unspecified Plan: stable; same rx Orders: Orders Complete Blood Count Auto Diff Today Z13.0 - Encounter for screening for diseases of the blood and blood-forming organs and certain disorders involving the immune mechanism Thyroid Stimulating Hormone Today Z13.29 - Encounter for screening for other suspected endocrine disorder Lipid Panel Today Z13.220 - Encounter for screening for lipoid disorders Comprehensive Andrews. Panel Fast Today Z13.9 - Encounter for screening, unspecified Medications: Refilled oxycodone-acetaminophen 5-325 mg (Percocet) partial ok 1 tab PO Q8H 28 days PRN 90 tabs 0RF pain Coding Level of Care Code Est Pt Level 3 (02060) Diagnoses Back pain M54.9
== END 2024-02-02 11:11 | disposition home or self-care (01) ==
PROVIDERS: PCP Internal Medicine; Visit Provider Internal Medicine
DX: M54.9 Dorsalgia, unspecified (principal)
CPT/HCPCS: 99213

== ENCOUNTER 2024-04-02 10:00 | Outpatient (AMB) | payer BC, SELFPAY ==
[2024-04-02 10:04] VITALS: BP 110/70; PULSE 60; O2SAT 98
--- NOTE | 2024-04-02 10:04 | MHC.PC.OV ---
Vital Signs 04/02/24 10:04 Height 5 ft 7 in BMI Reason not done Patient refused/unable BP 110/70 Blood Pressure Location Lt brachial Position Sitting Pulse 60 Pulse Source Pulse Oximeter Pulse Oximetry (%) 98 Oxygen Delivery Method Room Air Intake Visit Reasons: Med Review Supervisor Sawing And Assembly Required: No Trade Embalmer: Not Required per policy Accompanied by: Self / Same As Patient Allergies No Known Allergies Allergy (Verified 04/02/24 10:05) Medication List - Last Reconciled 04/02/24 by Mc Albert MD atorvastatin 40 mg PO DAILY oxycodone-acetaminophen 5-325 mg (Percocet) 1 tab PO Q8H PRN 28 days Tobacco use date assessed: 01/05/24 Dental Screening Dental Screen Date: 11/04/23 HPI Med Review HPI Details chronic LDD; controlled on rx PFSH Surgical History Hx of cervical polypectomy Family History Father Lung cancer Mother No problems noted. Social History Housing: House Alcohol intake: never Patient Tobacco Use Status: Never used Tobacco e-Cigarette/Vaping Use: Never Used Second Hand Smoke Exposure: No service: No Current occupational status: retired Current occupational exposures/hazards: No Cognitive needs: No Hearing needs: No Vision needs: No Questionnaire Thrive Questionnaire Date Thrive assessed: 10/06/23 JONNATHAN-7 AMB Questionnaire JONNATHAN-7 Date JONNATHAN - 7 assessed: 10/06/23 Source: Developed by Drs. Niranjan Jacinto, Claudette Gilmore, Octaviano Wagner and colleagues, with an educational piedad from [employer]. Review of Systems Const Denies chills, Denies headache(s) and Denies weight loss ENT Denies headache(s) Card Denies chest pain, Denies syncope, Denies irregular heart rhythm and Denies dyspnea Resp Denies chest congestion, Denies cough and Denies dyspnea GI Denies abdominal pain, Denies change in stool character, Denies nausea and Denies vomiting Musc Denies deformity and Denies joint swelling Neuro Denies syncope and Denies headache(s) Physical exam (Primary Care) Vital Signs: Last Vital Signs Pulse 60 04/02/24 10:04 BP 110/70 04/02/24 10:04 Pulse Ox 98 04/02/24 10:04 Oxygen Delivery Method Room Air 04/02/24 10:04 Tobacco/Smoking Status: Tobacco use Status Tobacco use date assessed 01/05/24 04/02/24 10:07 Patient Tobacco Use Status Never used Tobacco 04/02/24 10:07 e-Cigarette/Vaping Use Never Used 04/02/24 10:07 Thrive Assessment: Date of Thrive Assessment Date Thrive assessed 10/06/23 04/02/24 10:07 Const General: cooperative, comfortable, no acute distress and alert Neck Neck: Yes no lymphadenopathy Thyroid: Thyroid normal Resp Effort & Inspection: normal respiratory effort Auscultation: clear to auscultation bilaterally Percussion: percussion normal Cardio Jugular venous distension: no JVD Palpation: normal PMI Rate: regular rate Rhythm: regular rhythm Heart sounds: S1 normal heart sound present and S2 normal heart sound present GI Inspection: Yes normal to inspection Palpation (GI): No hepatosplenomegaly present Skin General skin exam: no rashes or lesions noted Extrem General: Yes no clubbing, cyanosis or edema Assessment and Plan Assessment & Plan (1) Back pain: Code(s): M54.9 - Dorsalgia, unspecified Plan: stable; same rx Coding Level of Care Code Est Pt Level 3 (00386) Diagnoses Back pain M54.9
== END 2024-04-02 10:20 | disposition home or self-care (01) ==
PROVIDERS: PCP Internal Medicine; Visit Provider Internal Medicine
DX: M54.9 Dorsalgia, unspecified (principal)
CPT/HCPCS: 99213

== ENCOUNTER 2024-05-11 07:33 | Outpatient (REF) | payer BC, SELFPAY ==
[2024-05-11 07:46] LABS: MANUAL DIFF FLAG NO
[2024-05-11 08:00] LABS: Basophils Percent Auto 0.6 % (0-2); Eosinophils Absolute Auto 0.2 X10*3/uL (0.0-0.4); Eosinophils Percent Auto 3.5 % (0-4); Hematocrit 42.3 % (37.0-47.0); Imm Gran Abs Auto 0.02 X10*3/uL (0.00-0.03); Imm Gran Pct Auto 0.4 % (0.0-0.4); Lymphocytes Absolute Auto 1.2 X10*3/uL (1.2-4.9); Lymphocytes Percent Auto 21.3 % (20-40); Mean Corpuscular HGB Conc 33.1 g/dl (31.0-35.0); Mean Corpuscular Hemoglobin 29.7 pg (27.0-33.0); Mean Corpuscular Volume 89.6 fL (80.0-98.0); Mean Platelet Volume 9.7 fL (9.4-12.3); Monocytes Absolute Auto 0.6 X10*3/uL (0.1-1.2); Monocytes Percent Auto 10.5 % (2-11); Neutrophils Absolute Auto 3.5 x10*3/uL (2.0-8.3); Neutrophils Percent Auto 63.7 % (45-73); Platelet Count 291 X10*3/uL (160-400); Red Blood Count 4.72 X10*6/uL (4.20-5.50); White Blood Count 5.4 X10*3/uL (4.8-10.8)
[2024-05-11 08:35] LABS: Alanine Aminotransferase 22 U/L (0-31); Albumin Level 4.3 g/dL (3.5-5.0); Alkaline Phosphatase 56 U/L (39-117); Anion Gap 11 (12-20); Aspartate Amino Transferase 21 U/L (5-31); Bilirubin Total 0.6 mg/dL (0.0-1.0); Blood Urea Nitrogen 16 mg/dL (9-16); Calcium 10.3 mg/dL (8.4-10.2); Carbon Dioxide 28 mmol/L (22-29); Chloride 103 mmol/L (96-108); Cholesterol 247 mg/dL (<200); Estimated Glomerular Filt Rate > 60; Glucose Fasting 95 mg/dL (60-99); HDL Cholesterol 77 mg/dL (>40); LDL Cholesterol Calculated 152 mg/dL (<100); Sodium 138 mmol/L (135-145); Total Protein 7.2 g/dL (6.5-8.0); Triglycerides 91 mg/dL (<150)
[2024-05-11 08:49] LABS: Thyroid Stimulating Hormone 2.53 uIU/mL (0.32-4.0)
== END 2024-05-11 07:34 | disposition home or self-care (01) ==
LOC: HO.LAB 07:33
PROVIDERS: PCP Internal Medicine; Visit Provider Internal Medicine
DX: Z13.0 Encounter for screening for diseases of the blood and blood-forming organs and certain disorders involving the immune mechanism (principal); Z13.29 Encounter for screening for other suspected endocrine disorder; Z13.220 Encounter for screening for lipoid disorders; Z13.9 Encounter for screening, unspecified
CPT/HCPCS: 36415; 80053; 80061; 84443; 85025

== ENCOUNTER 2024-05-11 09:32 | Outpatient (AMB) | payer BC, SELFPAY ==
[2024-05-11 09:34] VITALS: BP 92/60; PULSE 72; O2SAT 97; BMI 22.2
--- NOTE | 2024-05-11 09:34 | MHC.PC.OV ---
Vital Signs 05/11/24 09:34 Height 5 ft 7 in Weight 142 lb 0.6 oz BMI 22.2 BP 92/60 Blood Pressure Location Lt brachial Position Sitting Pulse 72 Pulse Source Pulse Oximeter Pulse Oximetry (%) 97 Oxygen Delivery Method Room Air Intake Visit Reasons: Med Management Still Pump Operator Required: No Allergies No Known Allergies Allergy (Verified 05/11/24 09:34) Medication List - Last Reconciled 05/11/24 by Mc Albert MD atorvastatin 40 mg PO DAILY oxycodone-acetaminophen 5-325 mg (Percocet) 1 tab PO Q8H PRN 28 days Tobacco use date assessed: 01/05/24 Dental Screening Dental Screen Date: 11/04/23 HPI Med Management HPI Details chronic back pain on rx; doing well and compliant PFSH Surgical History Hx of cervical polypectomy Family History Father Lung cancer Mother No problems noted. Social History Housing: House Alcohol intake: never Patient Tobacco Use Status: Never used Tobacco e-Cigarette/Vaping Use: Never Used Second Hand Smoke Exposure: No service: No Current occupational status: retired Current occupational exposures/hazards: No Cognitive needs: No Hearing needs: No Vision needs: No Questionnaire Thrive Questionnaire Date Thrive assessed: 10/06/23 AUDIT C Alcohol Use Questionnaire (AUDIT-C) 1. How often do you have a drink containing alcohol?: 2-4 times a month 2. How many drinks containing alcohol do you have on a typical day when you are drinking?: 1 or 2 3. How often do you have six or more drinks on one occasion?: Never Total Score: 2 Score Reviewed/Action Taken: Yes JONNATHAN-7 AMB Questionnaire JONNATHAN-7 Date JONNATHAN - 7 assessed: 10/06/23 Source: Developed by Drs. Niranjan Jacinto, Claudette Gilmore, Octaviano Wagner and colleagues, with an educational piedad from [employer]. Review of Systems Const Denies chills, Denies headache(s) and Denies weight loss ENT Denies headache(s) Card Denies chest pain, Denies syncope, Denies irregular heart rhythm and Denies dyspnea Resp Denies chest congestion, Denies cough and Denies dyspnea GI Denies abdominal pain, Denies change in stool character, Denies nausea and Denies vomiting Musc Denies deformity and Denies joint swelling Neuro Denies syncope and Denies headache(s) Physical exam (Primary Care) Vital Signs: Last Vital Signs Pulse 72 05/11/24 09:34 BP 92/60 05/11/24 09:34 Pulse Ox 97 05/11/24 09:34 Oxygen Delivery Method Room Air 05/11/24 09:34 BMI result Body Mass Index 22.2 Tobacco/Smoking Status: Tobacco use Status Tobacco use date assessed 01/05/24 05/11/24 09:35 Patient Tobacco Use Status Never used Tobacco 05/11/24 09:35 e-Cigarette/Vaping Use Never Used 05/11/24 09:35 Thrive Assessment: Date of Thrive Assessment Date Thrive assessed 10/06/23 05/11/24 09:35 Const General: cooperative, comfortable, no acute distress and alert Neck Neck: Yes no lymphadenopathy Thyroid: Thyroid normal Resp Effort & Inspection: normal respiratory effort Auscultation: clear to auscultation bilaterally Percussion: percussion normal Cardio Jugular venous distension: no JVD Palpation: normal PMI Rate: regular rate Rhythm: regular rhythm Heart sounds: S1 normal heart sound present and S2 normal heart sound present GI Inspection: Yes normal to inspection Palpation (GI): No hepatosplenomegaly present Skin General skin exam: no rashes or lesions noted Extrem General: Yes no clubbing, cyanosis or edema Assessment and Plan Assessment & Plan (1) Back pain: Code(s): M54.9 - Dorsalgia, unspecified Plan: stable; same rx Medications: Refilled oxycodone-acetaminophen 5-325 mg (Percocet) partial ok 1 tab PO Q8H 28 days PRN 90 tabs 0RF pain Coding Level of Care Code Est Pt Level 3 (67224) Diagnoses Back pain M54.9
== END 2024-05-11 13:06 | disposition home or self-care (01) ==
PROVIDERS: PCP Internal Medicine; Visit Provider Internal Medicine
DX: M54.9 Dorsalgia, unspecified (principal)
CPT/HCPCS: 99213

== ENCOUNTER 2024-06-11 08:39 | Outpatient (AMB) | payer BC, SELFPAY ==
[2024-06-11 08:40] VITALS: BP 110/68; PULSE 62; O2SAT 95; BMI 21.9
--- NOTE | 2024-06-11 08:40 | MHC.PC.OV ---
Vital Signs 06/11/24 08:40 Height 5 ft 7 in Weight 140 lb BMI 21.9 BP 110/68 Blood Pressure Location Lt brachial Position Sitting Pulse 62 Pulse Source Pulse Oximeter Pulse Oximetry (%) 95 Oxygen Delivery Method Room Air Intake Visit Reasons: Med Management Intake Note: Patient is having surgery on her right ankle on June 28, 2024. She stated she will be non-weight bearing for about 9 weeks and won't be able to come in for med management appts during that time. Talkback Host Required: No Accompanied by: Self / Same As Patient Allergies No Known Allergies Allergy (Verified 06/11/24 08:47) Medication List - Last Reconciled 06/11/24 by Mc Albert MD atorvastatin 40 mg PO DAILY oxycodone-acetaminophen 5-325 mg (Percocet) 1 tab PO Q8H PRN 28 days Tobacco use date assessed: 01/05/24 Dental Screening Dental Screen Date: 11/04/23 HPI Med Management HPI Details chronic back pain on rx; compliant with regimen PFSH Surgical History Hx of cervical polypectomy Family History Father Lung cancer Mother No problems noted. Social History Housing: House Alcohol intake: never Patient Tobacco Use Status: Never used Tobacco Tobacco use type: Cigarette e-Cigarette/Vaping Use: Never Used Second Hand Smoke Exposure: No service: No Current occupational status: retired Current occupational exposures/hazards: No Cognitive needs: No Hearing needs: No Vision needs: No Questionnaire PHQ-9 Over the last 2 weeks, how often have you been bothered by any of the following problems? 1. Little interest or pleasure in doing things: not at all 2. Feeling down, depressed, or hopeless: not at all 3. Trouble falling or staying asleep, or sleeping too much: not at all 4. Feeling tired or having little energy: not at all 5. Poor appetite or overeating: not at all 6. Feeling bad about yourself - or that you are a failure or have let yourself or your family down: not at all 7. Trouble concentrating on things, such as reading the newspaper or watching television: not at all 8. Moving or speaking so slowly that other people could have noticed. Or the opposite - being so fidgety or restless that you have been moving around a lot more than usual: not at all 9. Thoughts that you would be better off or of hurting yourself in some way: not at all Total score: 0 Depression Screening Interpretation: Negative Depression Screening Done: Yes Source: Developed by Drs. Niranjan Jacinto, Claudette Gilmore, Octaviano Wagner and colleagues, with an educational piedad from [employer]. Thrive Questionnaire Date Thrive assessed: 10/06/23 AUDIT C Alcohol Use Questionnaire (AUDIT-C) 1. How often do you have a drink containing alcohol?: 2-4 times a month 2. How many drinks containing alcohol do you have on a typical day when you are drinking?: 1 or 2 3. How often do you have six or more drinks on one occasion?: Never Total Score: 2 Score Reviewed/Action Taken: Yes JONNATHAN-7 AMB Questionnaire JONNATHAN-7 Date JONNATHAN - 7 assessed: 10/06/23 Source: Developed by Drs. Niranjan Jacinto, Claudette Gilmore, Octaviano Wagner and colleagues, with an educational piedad from [employer]. Review of Systems Const Denies chills, Denies headache(s) and Denies weight loss ENT Denies headache(s) Card Denies chest pain, Denies syncope, Denies irregular heart rhythm and Denies dyspnea Resp Denies chest congestion, Denies cough and Denies dyspnea GI Denies abdominal pain, Denies change in stool character, Denies nausea and Denies vomiting Musc Denies deformity and Denies joint swelling Neuro Denies syncope and Denies headache(s) Physical exam (Primary Care) Vital Signs: Last Vital Signs Pulse 62 06/11/24 08:40 BP 110/68 06/11/24 08:40 Pulse Ox 95 06/11/24 08:40 Oxygen Delivery Method Room Air 06/11/24 08:40 BMI result Body Mass Index 21.9 Tobacco/Smoking Status: Tobacco use Status Tobacco use date assessed 01/05/24 06/11/24 08:47 Patient Tobacco Use Status Never used Tobacco 06/11/24 08:47 Tobacco use type Cigarette 06/11/24 08:47 e-Cigarette/Vaping Use Never Used 06/11/24 08:47 PHQ-9: PHQ-9 Score PHQ-9: Total score 0 06/11/24 08:47 Depression Screening Interpretation: Negative Thrive Assessment: Date of Thrive Assessment Date Thrive assessed 10/06/23 06/11/24 08:47 Const General: cooperative, comfortable, no acute distress and alert Neck Neck: Yes no lymphadenopathy Thyroid: Thyroid normal Resp Effort & Inspection: normal respiratory effort Auscultation: clear to auscultation bilaterally Percussion: percussion normal Cardio Jugular venous distension: no JVD Palpation: normal PMI Rate: regular rate Rhythm: regular rhythm Heart sounds: S1 normal heart sound present and S2 normal heart sound present GI Inspection: Yes normal to inspection Palpation (GI): No hepatosplenomegaly present Skin General skin exam: no rashes or lesions noted Extrem General: Yes no clubbing, cyanosis or edema Assessment and Plan Assessment & Plan (1) Back pain: Code(s): M54.9 - Dorsalgia, unspecified Plan: stable; same rx Medications: Refilled oxycodone-acetaminophen 5-325 mg (Percocet) partial ok 1 tab PO Q8H 28 days PRN 90 tabs 0RF pain Coding Level of Care Code Est Pt Level 3 (54080) Diagnoses Back pain M54.9 Additional Codes PHQ-9 - 79937 - PHQ-9 Billing: ([id number])
== END 2024-06-11 11:13 | disposition home or self-care (01) ==
PROVIDERS: PCP Internal Medicine; Visit Provider Internal Medicine
DX: M54.9 Dorsalgia, unspecified (principal)
CPT/HCPCS: 99213

== ENCOUNTER 2024-09-13 08:23 | Outpatient (AMB) | payer BC, SELFPAY ==
--- NOTE | 2024-09-13 08:23 | A.OFFPC_ITS ---
Intake Visit Reasons: Med Management Allergies No Known Allergies Allergy (Verified 09/13/24 08:24) Tobacco use date assessed: 01/05/24 Dental Screening Dental Screen Date: 11/04/23 HPI Med Management HPI Details chronic back pain on rx; due for meds; compliant; still recovering from foot surgery PFSH Surgical History Hx of cervical polypectomy Family History Father Lung cancer Mother No problems noted. Social History Housing: House Alcohol intake: never Patient Tobacco Use Status: Never used Tobacco Tobacco use type: Cigarette e-Cigarette/Vaping Use: Never Used Second Hand Smoke Exposure: No service: No Current occupational status: retired Current occupational exposures/hazards: No Cognitive needs: No Hearing needs: No Vision needs: No Questionnaire PHQ-9 Over the last 2 weeks, how often have you been bothered by any of the following problems? 1. Little interest or pleasure in doing things: not at all 2. Feeling down, depressed, or hopeless: not at all 3. Trouble falling or staying asleep, or sleeping too much: not at all 4. Feeling tired or having little energy: not at all 5. Poor appetite or overeating: not at all 6. Feeling bad about yourself - or that you are a failure or have let yourself or your family down: not at all 7. Trouble concentrating on things, such as reading the newspaper or watching television: not at all 8. Moving or speaking so slowly that other people could have noticed. Or the opposite - being so fidgety or restless that you have been moving around a lot more than usual: not at all 9. Thoughts that you would be better off or of hurting yourself in some way: not at all Total score: 0 Depression Screening Interpretation: Negative Depression Screening Done: Yes Source: Developed by Drs. Niranjan Jacinto, Claudette Gilmore, Octaviano Wagner and colleagues, with an educational piedad from [employer]. Thrive Questionnaire Date Thrive assessed: 10/06/23 AUDIT C Alcohol Use Questionnaire (AUDIT-C) 3. How often do you have six or more drinks on one occasion?: Less than monthly Total Score: 1 JONNATHAN-7 AMB Questionnaire JONNATHAN-7 Date JONNATHAN - 7 assessed: 10/06/23 Source: Developed by Drs. Niranjan Jacinto, Claudette Gilmore, Octaviano Wagner and colleagues, with an educational piedad from [employer]. Review of Systems Const Denies chills, Denies headache(s) and Denies weight loss ENT Denies headache(s) Card Denies chest pain, Denies syncope, Denies irregular heart rhythm and Denies dyspnea Resp Denies chest congestion, Denies cough and Denies dyspnea GI Denies abdominal pain, Denies change in stool character, Denies nausea and Denies vomiting Musc Denies deformity and Denies joint swelling Neuro Denies syncope and Denies headache(s) Physical exam (Primary Care) Tobacco/Smoking Status: Tobacco use Status Tobacco use date assessed 01/05/24 09/13/24 08:25 Patient Tobacco Use Status Never used Tobacco 09/13/24 08:25 Tobacco use type Cigarette 09/13/24 08:25 e-Cigarette/Vaping Use Never Used 09/13/24 08:25 PHQ-9: PHQ-9 Score PHQ-9: Total score 0 09/13/24 08:25 Depression Screening Interpretation: Negative Thrive Assessment: Date of Thrive Assessment Date Thrive assessed 10/06/23 09/13/24 08:25 Telehealth Telehealth Location of provider rendering services: practice address Location of patient: address on file Patient Identification confirmed using: Name, : Yes Telehealth method: voice only Patient verbally consented to treatment: Yes Patient verbally consented to billing insurance company: Yes Patient informed of any privacy concerns related to visit: Yes Minutes spent on Phone/Video with Pt.: 15 (telephone) Coding Level of Care Code Tele Est Pt Level 3 (72302) Diagnoses Back pain M54.9 Assessment & Plan Assessment & Plan (1) Back pain: Code(s): M54.9 - Dorsalgia, unspecified Category: Medical Plan: rx sent Medications: Refilled oxycodone-acetaminophen 5-325 mg (Percocet) partial ok 1 tab PO Q8H 28 days PRN 90 tabs 0RF pain
== END 2024-09-13 09:34 | disposition home or self-care (01) ==
LOC: HO.HMCH 08:23
PROVIDERS: PCP Internal Medicine; Visit Provider Internal Medicine
DX: M54.9 Dorsalgia, unspecified (principal)

== ENCOUNTER → 2024-09-13 08:23 | Outpatient (BNVA) | payer BC, SELFPAY | PROVIDERS: PCP Internal Medicine; Visit Provider Internal Medicine ==

== ENCOUNTER 2024-11-12 09:13 | Outpatient (AMB) | payer BC, SELFPAY ==
--- NOTE | 2024-11-12 09:17 | A.OFFPC_ITS ---
Vital Signs 11/12/24 09:18 Height 54 ft 7 in Weight 147 lb 6 oz BMI 0.2 BP 130/70 Blood Pressure Location Lt brachial Position Sitting Pulse 65 Pulse Source Pulse Oximeter Temp 97.1 F Temp Source Temporal Artery Scan Pulse Oximetry (%) 95 Oxygen Delivery Method Room Air Intake Visit Reasons: Med Management Intake Note: Patient is here to follow up on med management. Movie Projectionist Required: No Drapery Cutter Machine: Not Required per policy Accompanied by: Self / Same As Patient Allergies No Known Allergies Allergy (Verified 11/12/24 09:18) Medication List - Last Reconciled 11/12/24 by cM Albert MD atorvastatin 40 mg PO DAILY oxycodone-acetaminophen 5-325 mg (Percocet) 1 tab PO Q8H PRN 28 days Tobacco use date assessed: 11/12/24 Dental Screening Dental Screen Date: 11/12/24 Did you have a dental visit in the last 12 months?: Yes Did you have a dental problem in the last 6 months where you did not have access to dental care?: No Was dental information given to patient?: Patient has dentist HPI Med Management HPI Details chronic back pain on rx; doing well; compliant [facility] Surgical History (Updated 11/12/24 @ 09:22 by KUSUM García) History of foot surgery Hx of cervical polypectomy Family History Father Lung cancer Mother No problems noted. Social History Housing: House Alcohol intake: never Patient Tobacco Use Status: Never used Tobacco Tobacco use type: Cigarette e-Cigarette/Vaping Use: Never Used Second Hand Smoke Exposure: No service: No Current occupational status: retired Current occupational exposures/hazards: No Cognitive needs: No Hearing needs: No Vision needs: No Questionnaire PHQ-9 Over the last 2 weeks, how often have you been bothered by any of the following problems? 1. Little interest or pleasure in doing things: not at all 2. Feeling down, depressed, or hopeless: not at all 3. Trouble falling or staying asleep, or sleeping too much: not at all 4. Feeling tired or having little energy: not at all 5. Poor appetite or overeating: not at all 6. Feeling bad about yourself - or that you are a failure or have let yourself or your family down: not at all 7. Trouble concentrating on things, such as reading the newspaper or watching television: not at all 8. Moving or speaking so slowly that other people could have noticed. Or the opposite - being so fidgety or restless that you have been moving around a lot more than usual: not at all 9. Thoughts that you would be better off or of hurting yourself in some way: not at all Total score: 0 Depression Screening Interpretation: Negative Depression Screening Done: Yes Source: Developed by Drs. Niranjan Jacinto, Claudette Gilmore, Octaviano Wagner and colleagues, with an educational piedad from [email or web address]. Thrive Questionnaire Date Thrive assessed: 11/12/24 I am a: Patient What is your living situation today?: I have a steady place to live Within the past 12 months, did the food you bought not last and you didn't have the money to get more?: Never true Within the past 12 months, did you worry whether your food would run out before you got money to buy more?: Never true Do you have trouble paying for medicines?: No Do you have trouble getting transportation to medical appointments?: No Do you have trouble paying your heating and electricity bill?: No Do you have trouble taking care of your child, family member or friend?: No Do you have trouble with day-to-day activities such as bathing, preparing meals, shopping, managing finances, etc.?: No Are you currently unemployed and looking for a job?: No Are you interested in more education?: No Please select the resources that you would like help with: None Currently or been in a relationship where the following occur: No concerns reported THRIVE Score: 0 AUDIT C Alcohol Use Questionnaire (AUDIT-C) 1. How often do you have a drink containing alcohol?: Monthly or less Total Score: 1 JONNATHAN-7 AMB Questionnaire JONNATHAN-7 Date JONNATHAN - 7 assessed: 11/12/24 Feeling nervous, anxious, or on edge: 0 = Not at all Not being able to stop or control worryin = Not at all Worrying too much about different things: 0 = Not at all Trouble relaxin = Not at all Being so restless that it is hard to sit still: 0 = Not at all Becoming easily annoyed or irritable: 0 = Not at all Feeling afraid as if something awful might happen: 0 = Not at all Total JONNATHAN-7 score (0-4 normal; 5-9 mild; 10-14 moderate; 15-21 severe): 0 Source: Developed by Drs. Niranjan Jacinto, Claudette Gilmore, Octaviano Wagner and colleagues, with an educational piedad from [email or web address]. Review of Systems Const Denies chills, Denies headache(s) and Denies weight loss ENT Denies headache(s) Card Denies chest pain, Denies syncope, Denies irregular heart rhythm and Denies dyspnea Resp Denies chest congestion, Denies cough and Denies dyspnea GI Denies abdominal pain, Denies change in stool character, Denies nausea and Denies vomiting Musc Denies deformity and Denies joint swelling Neuro Denies syncope and Denies headache(s) Physical exam (Primary Care) Vital Signs: Last Vital Signs Temp 97.1 F 11/12/24 09:18 Pulse 65 11/12/24 09:18 BP 130/70 11/12/24 09:18 Pulse Ox 95 11/12/24 09:18 Oxygen Delivery Method Room Air 11/12/24 09:18 BMI result Body Mass Index 0.2 Tobacco/Smoking Status: Tobacco use Status Tobacco use date assessed 11/12/24 11/12/24 09:23 Patient Tobacco Use Status Never used Tobacco 11/12/24 09:23 Tobacco use type Cigarette 11/12/24 09:23 e-Cigarette/Vaping Use Never Used 11/12/24 09:23 PHQ-9: PHQ-9 Score PHQ-9: Total score 0 11/12/24 09:23 Depression Screening Interpretation: Negative Thrive Assessment: Date of Thrive Assessment Date Thrive assessed 11/12/24 11/12/24 09:23 Currently or been in a relationship where the following occur: No concerns reported Const General: cooperative, comfortable, no acute distress and alert Neck Neck: Yes no lymphadenopathy Thyroid: Thyroid normal Resp Effort & Inspection: normal respiratory effort Auscultation: clear to auscultation bilaterally Percussion: percussion normal Cardio Jugular venous distension: no JVD Palpation: normal PMI Rate: regular rate Rhythm: regular rhythm Heart sounds: S1 normal heart sound present and S2 normal heart sound present GI Inspection: Yes normal to inspection Palpation (GI): No hepatosplenomegaly present Skin General skin exam: no rashes or lesions noted Extrem General: Yes no clubbing, cyanosis or edema Coding Level of Care Code Est Pt Level 3 (61196) Diagnoses Back pain M54.9 Assessment & Plan Assessment & Plan (1) Back pain: Code(s): M54.9 - Dorsalgia, unspecified Category: Medical Plan: stable; same rx Medications: Refilled oxycodone-acetaminophen 5-325 mg (Percocet) partial ok 1 tab PO Q8H 28 days PRN 90 tabs 0RF pain
[2024-11-12 09:18] VITALS: BP 130/70; PULSE 65; TEMP 36.2; O2SAT 95
== END 2024-11-12 09:39 | disposition home or self-care (01) ==
PROVIDERS: PCP Internal Medicine; Visit Provider Internal Medicine
DX: M54.9 Dorsalgia, unspecified (principal)

== ENCOUNTER 2024-12-10 08:04 | Outpatient (AMB) | payer BC, SELFPAY ==
--- NOTE | 2024-12-10 08:14 | A.OFFPC_ITS ---
Vital Signs 12/10/24 08:15 Height 5 ft 7 in Weight 146 lb 8 oz BMI 22.9 BP 100/60 Blood Pressure Location Lt brachial Position Sitting Pulse 54 Pulse Source Pulse Oximeter Temp 97.3 F Temp Source Temporal Artery Scan Pulse Oximetry (%) 97 Oxygen Delivery Method Room Air Intake Visit Reasons: Med Management Intake Note: Patient is here to follow up on med management. Jive Developer Required: No Supervisor Endless Track Vehicle: Not Required per policy Accompanied by: Self / Same As Patient Allergies No Known Allergies Allergy (Verified 12/10/24 08:15) Medication List - Last Reconciled 12/10/24 by Mc Albert MD atorvastatin 40 mg PO DAILY oxycodone-acetaminophen 5-325 mg (Percocet) 1 tab PO Q8H PRN 28 days Tobacco use date assessed: 12/10/24 Dental Screening Dental Screen Date: 11/12/24 HPI Med Management HPI Details chronic back pain due to LDD; stable on rx; hyperlipidemia on rx PFSH Surgical History History of foot surgery Hx of cervical polypectomy Family History Father Lung cancer Mother No problems noted. Social History Housing: House Alcohol intake: never Patient Tobacco Use Status: Never used Tobacco Tobacco use type: Cigarette e-Cigarette/Vaping Use: Never Used Second Hand Smoke Exposure: No service: No Current occupational status: retired Current occupational exposures/hazards: No Cognitive needs: No Hearing needs: No Vision needs: No Questionnaire Thrive Questionnaire Date Thrive assessed: 11/12/24 JONNATHAN-7 AMB Questionnaire JONNATHAN-7 Date JONNATHAN - 7 assessed: 11/12/24 Source: Developed by Drs. Niranjan Jacinto, Claudette Gilmore, Octaviano Wagner and colleagues, with an educational piedad from [employer]. Review of Systems Const Denies chills, Denies headache(s) and Denies weight loss ENT Denies headache(s) Card Denies chest pain, Denies syncope, Denies irregular heart rhythm and Denies dyspnea Resp Denies chest congestion, Denies cough and Denies dyspnea GI Denies abdominal pain, Denies change in stool character, Denies nausea and Denies vomiting Musc Denies deformity and Denies joint swelling Neuro Denies syncope and Denies headache(s) Physical exam (Primary Care) Vital Signs: Last Vital Signs Temp 97.3 F 12/10/24 08:15 Pulse 54 12/10/24 08:15 BP 100/60 12/10/24 08:15 Pulse Ox 97 12/10/24 08:15 Oxygen Delivery Method Room Air 12/10/24 08:15 BMI result Body Mass Index 22.9 Tobacco/Smoking Status: Tobacco use Status Tobacco use date assessed 12/10/24 12/10/24 08:19 Patient Tobacco Use Status Never used Tobacco 12/10/24 08:19 Tobacco use type Cigarette 12/10/24 08:19 e-Cigarette/Vaping Use Never Used 12/10/24 08:19 Thrive Assessment: Date of Thrive Assessment Date Thrive assessed 11/12/24 12/10/24 08:19 Const General: cooperative, comfortable, no acute distress and alert Neck Neck: Yes no lymphadenopathy Thyroid: Thyroid normal Resp Effort & Inspection: normal respiratory effort Auscultation: clear to auscultation bilaterally Percussion: percussion normal Cardio Jugular venous distension: no JVD Palpation: normal PMI Rate: regular rate Rhythm: regular rhythm Heart sounds: S1 normal heart sound present and S2 normal heart sound present GI Inspection: Yes normal to inspection Palpation (GI): No hepatosplenomegaly present Skin General skin exam: no rashes or lesions noted Extrem General: Yes no clubbing, cyanosis or edema Coding Level of Care Code Est Pt Level 3 (33420) Diagnoses Back pain M54.9 Assessment & Plan Assessment & Plan (1) Back pain: Code(s): M54.9 - Dorsalgia, unspecified Category: Medical Plan: stable; same rx Medications: Refilled oxycodone-acetaminophen 5-325 mg (Percocet) partial ok 1 tab PO Q8H 28 days PRN 90 tabs 0RF pain
[2024-12-10 08:15] VITALS: BP 100/60; PULSE 54; TEMP 36.3; O2SAT 97; BMI 22.9
== END 2024-12-10 08:44 | disposition home or self-care (01) ==
LOC: HO.HMCH 08:04
PROVIDERS: PCP Internal Medicine; Visit Provider Internal Medicine
DX: M54.9 Dorsalgia, unspecified (principal)

== ENCOUNTER → 2024-12-10 08:04 | Outpatient (BNVA) | payer BC, SELFPAY | PROVIDERS: PCP Internal Medicine; Visit Provider Internal Medicine ==

== ENCOUNTER 2025-01-10 10:49 | Outpatient (AMB) | payer BC, SELFPAY ==
[2025-01-10 10:52] VITALS: BP 104/80; PULSE 62; O2SAT 97; BMI 22.6
--- NOTE | 2025-01-10 10:52 | MHC.PC.OV ---
Vital Signs 01/10/25 10:52 Height 5 ft 7 in Weight 144 lb 4 oz BMI 22.6 BP 104/80 Blood Pressure Location Lt brachial Position Sitting Pulse 62 Pulse Source Pulse Oximeter Pulse Oximetry (%) 97 Oxygen Delivery Method Room Air Intake Visit Reasons: Med Management [employer] Required: No Accompanied by: Self / Same As Patient Allergies No Known Allergies Allergy (Verified 01/10/25 11:20) Medication List - Last Reconciled 01/10/25 by Matias Montesinos MD atorvastatin 40 mg PO DAILY oxycodone-acetaminophen 5-325 mg (Percocet) 1 tab PO Q8H PRN 28 days Tobacco use date assessed: 01/10/25 Dental Screening Dental Screen Date: 01/10/25 Did you have a dental visit in the last 12 months?: Yes Did you have a dental problem in the last 6 months where you did not have access to dental care?: No Was dental information given to patient?: Patient has dentist HPI Med Management HPI Details Patient comes in today for her follow up visit - is transferring over from Dr. lAbert, who retired from the practice last month States that she currently feels okay and that her chronic neck pain and low back pain remain adequately controlled on her current Rx and that she will need her pain med Rx refilled today She continues to follow up with [facility] every 3 months or so for pain management and back injections Patient states that she currently feels okay otherwise She denies any headaches or dizziness Denies any chest pains, no SOB No nausea/vomiting, no abdominal pain No change in bowel habits noted States that she is back on her Atorvastatin 40 mg QD - admits that she stopped taking it for a while but was advised by Dr. Albert at her last visit with him that she should continue taking her Rx unless she is instructed to stop States that she is tolerating her Rx without any issues [facility] Medical History (Updated 01/11/25 @ 02:27 by Matias Montesinos MD) Bilateral sacroiliitis Cervical spondylosis Atrial fibrillation History of right breast cancer Lumbar degenerative disc disease Pure hypercholesterolemia Surgical History (Updated 01/11/25 @ 02:16 by Matias Montesinos MD) Status post right foot surgery History of hemilaminectomy History of lumpectomy of right breast History of foot surgery Hx of cervical polypectomy Family History Father Lung cancer Mother No problems noted. Social History (Updated 01/11/25 @ 02:17 by Matias Montesinos MD) Housing: House Alcohol intake: current Comment: drinks about once a month Patient Tobacco Use Status: Never used Tobacco Tobacco use type: Cigarette e-Cigarette/Vaping Use: Never Used Second Hand Smoke Exposure: No service: No Current occupational status: retired Current occupational exposures/hazards: No Cognitive needs: No Hearing needs: No Vision needs: No Questionnaire PHQ-9 Over the last 2 weeks, how often have you been bothered by any of the following problems? 1. Little interest or pleasure in doing things: not at all 2. Feeling down, depressed, or hopeless: not at all 3. Trouble falling or staying asleep, or sleeping too much: not at all 4. Feeling tired or having little energy: not at all 5. Poor appetite or overeating: not at all 6. Feeling bad about yourself - or that you are a failure or have let yourself or your family down: not at all 7. Trouble concentrating on things, such as reading the newspaper or watching television: not at all 8. Moving or speaking so slowly that other people could have noticed. Or the opposite - being so fidgety or restless that you have been moving around a lot more than usual: not at all 9. Thoughts that you would be better off or of hurting yourself in some way: not at all Total score: 0 Depression Screening Interpretation: Negative Depression Screening Done: Yes 52181 - PHQ-9 Billing: Yes Source: Developed by Drs. Niranjan Jacinto, Claudette Gilmore, Octaviano Wagner and colleagues, with an educational piedad from [employer]. Thrive Questionnaire Date Thrive assessed: 01/10/25 I am a: Patient What is your living situation today?: I have a steady place to live Within the past 12 months, did the food you bought not last and you didn't have the money to get more?: Never true Within the past 12 months, did you worry whether your food would run out before you got money to buy more?: Never true Do you have trouble paying for medicines?: No Do you have trouble getting transportation to medical appointments?: No Do you have trouble paying your heating and electricity bill?: No Do you have trouble taking care of your child, family member or friend?: No Do you have trouble with day-to-day activities such as bathing, preparing meals, shopping, managing finances, etc.?: No Are you currently unemployed and looking for a job?: No Are you interested in more education?: No Please select the resources that you would like help with: None Currently or been in a relationship where the following occur: No concerns reported THRIVE Score: 0 AUDIT C Alcohol Use Questionnaire (AUDIT-C) 1. How often do you have a drink containing alcohol?: Monthly or less 2. How many drinks containing alcohol do you have on a typical day when you are drinking?: 1 or 2 3. How often do you have six or more drinks on one occasion?: Never Total Score: 1 Score Reviewed/Action Taken: Yes JONNATHAN-7 AMB Questionnaire JONNATHAN-7 Date JONNATHAN - 7 assessed: 01/10/25 Feeling nervous, anxious, or on edge: 0 = Not at all Not being able to stop or control worryin = Not at all Worrying too much about different things: 0 = Not at all Trouble relaxin = Not at all Being so restless that it is hard to sit still: 0 = Not at all Becoming easily annoyed or irritable: 0 = Not at all Feeling afraid as if something awful might happen: 0 = Not at all Total JONNATHAN-7 score (0-4 normal; 5-9 mild; 10-14 moderate; 15-21 severe): 0 Source: Developed by Drs. Niranjan Jacinto, Claudette Gilmore, Octaviano Wagner and colleagues, with an educational piedad from [employer]. Review of Systems Const Denies chills, Denies fatigue, Denies fever(s) and Denies headache(s) ENT Denies dysphagia, Denies dizziness, Denies otalgia, Denies headache(s), Reports neck pain (chronic), Denies odynophagia and Denies sore throat Card Denies chest pain, Denies palpitations and Denies dyspnea Resp Denies chest congestion, Denies cough and Denies dyspnea GI Denies abdominal pain, Denies constipation, Denies dysphagia, Denies heartburn, Denies diarrhea, Denies nausea, Denies odynophagia and Denies vomiting Denies difficulty voiding, Denies nocturia, Denies dysuria and Denies urinary urgency Musc Reports back pain (chronic) and Reports neck pain (chronic) Skin/Breast Denies rash Neuro Denies dizziness and Denies headache(s) Endo Denies fatigue and Denies palpitations Physical exam (Primary Care) Vital Signs: Last Vital Signs Pulse 62 01/10/25 10:52 BP 104/80 01/10/25 10:52 Pulse Ox 97 01/10/25 10:52 Oxygen Delivery Method Room Air 01/10/25 10:52 BMI result Body Mass Index 22.6 Tobacco/Smoking Status: Tobacco use Status Tobacco use date assessed 01/10/25 01/10/25 11:00 Patient Tobacco Use Status Never used Tobacco 01/10/25 11:00 Tobacco use type Cigarette 01/10/25 11:00 e-Cigarette/Vaping Use Never Used 01/10/25 11:00 PHQ-9: PHQ-9 Score PHQ-9: Total score 0 01/10/25 11:24 Depression Screening Interpretation: Negative Thrive Assessment: Date of Thrive Assessment Date Thrive assessed 01/10/25 01/10/25 11:00 Currently or been in a relationship where the following occur: No concerns reported Const General: no acute distress and alert HENMT Throat: Yes posterior oropharynx normal and Yes tonsils normal (no TP congestion) Neck Neck: Yes supple and No lymphadenopathy Thyroid: Thyroid normal Resp Auscultation: clear to auscultation bilaterally, no rales and no wheezes Cardio Rate: regular rate Rhythm: regular rhythm Heart sounds: no murmurs GI Palpation (GI): Soft to palpation and nontender Auscultation: normal bowel sounds General: Yes no CVA tenderness Back/Spine/Pelvis Back: no CVA tenderness Cervical Spine: Cervical spine tenderness Thoracic/Lumbar Spine: lumbar spinal tenderness Sacroiliac joints: bilaterally tender to palpation Skin Rashes: no rashes Extrem General: Yes no clubbing, cyanosis or edema Coding Level of Care Code Est Pt Level 4 (62862) Diagnoses Pure hypercholesterolemia E78.00 Degeneration of intervertebral disc of lumbar region with discogenic back pain M51.360 Disc-related pain type: discogenic back pain only Cervical spondylosis M47.812 History of right breast cancer Z85.3 Additional Codes PHQ-9 - 24332 - PHQ-9 Billing: Yes ([id number]) Assessment & Plan Assessment & Plan (1) Pure hypercholesterolemia: Code(s): E78.00 - Pure hypercholesterolemia, unspecified Category: Medical Plan: Reinforced low cholesterol diet Continue Atorvastatin 40 mg QD Will have patient get some follow up labs done in 1 month - have instructed her to get these done a few days BEFORE she comes in for her appointment next month - these will also help us follow up/recheck her cholesterol levels to assess the efficacy of her Rx (2) Lumbar degenerative disc disease: Code(s): M51.369 - Other intervertebral disc degeneration, lumbar region without mention of lumbar back pain or lower extremity pain Category: Medical Qualifiers: Disc-related pain type: discogenic back pain only Qualified Code(s): M51.360 - Other intervertebral disc degeneration, lumbar region with discogenic back pain only Plan: Patient continues to follow up with [facility] every 3 months or so for back injections that she states provide her with some relief - she is advised to continue following up with [facility] as scheduled for continuing pain management States that she has tried chiropractic Tx in the past without any improvement of her symptoms Continue Oxycodone-Acetaminophen 5-325 mg Q 8 hours PRN for pain - Rx refilled Patient has been maintained on her current pain medication for years through her previous PCP (Dr. Albert) and I have advised patient that I will continue on her current medications for now I will likely require her to sign a new pain management agreement at her next appointment and will be implementing random drug screens and unannounced pill counts as part of the agreement and have reminded patient that any violation of the stipulations of the pain management agreement as well as any evidence of noncompliance with her medications or diversion or misuse of her prescription will result in automatic suspension of her pain medication prescriptions (3) Cervical spondylosis: Code(s): M47.812 - Spondylosis without myelopathy or radiculopathy, cervical region Category: Medical Plan: (+) Hx of cervical laminectomy States that her neck pain has been manageable with her current Rx lately (4) History of right breast cancer: Comment: 2011 Code(s): Z85.3 - Personal history of malignant neoplasm of breast Category: Medical Plan: S/P RSL and lumpectomy back in 2011 Continue annual mammography for surveillance Plan Follow up as scheduled next month Orders: Orders Complete Blood Count Auto Diff 01/29/25 D64.9 - Anemia, unspecified Comprehensive [place]. Panel Fast 01/29/25 E78.00 - Pure hypercholesterolemia, unspecified Lipid Panel 01/29/25 E78.00 - Pure hypercholesterolemia, unspecified TSH reflex Free T4 01/29/25 E78.00 - Pure hypercholesterolemia, unspecified UA CC w/rflx Micro + Cult 01/29/25 R30.0 - Dysuria Vitamin D 25-OH Total 01/29/25 E55.9 - Vitamin D deficiency, unspecified Erythrocyte Sedimentation Rate 01/29/25 M25.50 - Pain in unspecified joint Magnesium 01/29/25 E83.42 - Hypomagnesemia Vitamin B12 and Folate 01/29/25 E53.8 - Deficiency of other specified B group vitamins ASHA Reflex Titer and Pattern 01/29/25 M25.50 - Pain in unspecified joint C Reactive Protein 01/29/25 M25.50 - Pain in unspecified joint Medications: Refilled oxycodone-acetaminophen 5-325 mg (Percocet) partial ok 1 tab PO Q8H 28 days PRN 90 tabs 0RF pain
== END 2025-01-10 11:24 | disposition home or self-care (01) ==
PROVIDERS: PCP Internal Medicine; Visit Provider Internal Medicine
DX: E78.00 Pure hypercholesterolemia, unspecified (principal); M51.360 Other intervertebral disc degeneration, lumbar region with discogenic back pain only; M47.812 Spondylosis without myelopathy or radiculopathy, cervical region; Z85.3 Personal history of malignant neoplasm of breast

== ENCOUNTER → 2025-01-10 10:49 | Outpatient (BNVA) | payer BC, SELFPAY | PROVIDERS: PCP Internal Medicine; Visit Provider Internal Medicine | DX: E78.00 Pure hypercholesterolemia, unspecified (principal); M51.360 Other intervertebral disc degeneration, lumbar region with discogenic back pain only; M47.812 Spondylosis without myelopathy or radiculopathy, cervical region; Z85.3 Personal history of malignant neoplasm of breast; Z79.891 Long term (current) use of opiate analgesic; Z79.899 Other long term (current) drug therapy | CPT/HCPCS: 96127 ==

== ENCOUNTER 2025-02-09 11:07 | Outpatient (AMB) | payer BC, SELFPAY ==
--- NOTE | 2025-02-09 11:08 | A.OFFPC_ITS ---
Vital Signs 02/09/25 11:09 Height 5 ft 7 in Weight 143 lb 8 oz BMI 22.5 BP 100/76 Blood Pressure Location Lt brachial Position Sitting Pulse 57 Pulse Source Pulse Oximeter Pulse Oximetry (%) 98 Oxygen Delivery Method Room Air Intake Visit Reasons: Med Management [employer] Pot[employer] Required: No Accompanied by: Self / Same As Patient Allergies No Known Allergies Allergy (Verified 02/12/25 20:41) Medication List - Last Reconciled 02/12/25 by Matias Montesinos MD atorvastatin 40 mg PO DAILY oxycodone-acetaminophen 5-325 mg (Percocet) 1 tab PO Q8H PRN 28 days Tobacco use date assessed: 02/09/25 Dental Screening Dental Screen Date: 02/09/25 Did you have a dental visit in the last 12 months?: Yes Did you have a dental problem in the last 6 months where you did not have access to dental care?: No Was dental information given to patient?: Patient has dentist HPI Med Management HPI Details Patient comes in today for her follow up visit States that she currently feels okay Relates that her chronic neck pain and low back pain remain adequately controlled on her current Rx - she will need her pain med Rx refilled today She continues to follow up with [facility] every 3 months or so for pain management and back injections She denies any headaches or dizziness Denies any chest pains, no SOB No nausea/vomiting, no abdominal pain No change in bowel habits noted She was not able to get her previously ordered labs done prior to her appointment today [facility] Medical History Bilateral sacroiliitis Cervical spondylosis Atrial fibrillation History of right breast cancer Lumbar degenerative disc disease Pure hypercholesterolemia Surgical History Status post right foot surgery History of hemilaminectomy History of lumpectomy of right breast History of foot surgery Hx of cervical polypectomy Family History Father Lung cancer Mother No problems noted. Social History Housing: House Alcohol intake: current Comment: drinks about once a month Patient Tobacco Use Status: Never used Tobacco Tobacco use type: Cigarette e-Cigarette/Vaping Use: Never Used Second Hand Smoke Exposure: No service: No Current occupational status: retired Current occupational exposures/hazards: No Cognitive needs: No Hearing needs: No Vision needs: No Questionnaire PHQ-9 Over the last 2 weeks, how often have you been bothered by any of the following problems? 1. Little interest or pleasure in doing things: not at all 2. Feeling down, depressed, or hopeless: not at all 3. Trouble falling or staying asleep, or sleeping too much: not at all 4. Feeling tired or having little energy: not at all 5. Poor appetite or overeating: not at all 6. Feeling bad about yourself - or that you are a failure or have let yourself or your family down: not at all 7. Trouble concentrating on things, such as reading the newspaper or watching television: not at all 8. Moving or speaking so slowly that other people could have noticed. Or the opposite - being so fidgety or restless that you have been moving around a lot more than usual: not at all 9. Thoughts that you would be better off or of hurting yourself in some way: not at all Total score: 0 Depression Screening Interpretation: Negative Depression Screening Done: Yes 24772 - PHQ-9 Billing: Yes Source: Developed by Drs. Niranjan Jacinto, Claudette Gilmore, Octaviano Wagner and colleagues, with an educational piedad from [employer]. Thrive Questionnaire Date Thrive assessed: 02/09/25 I am a: Patient What is your living situation today?: I have a steady place to live Within the past 12 months, did the food you bought not last and you didn't have the money to get more?: Never true Within the past 12 months, did you worry whether your food would run out before you got money to buy more?: Never true Do you have trouble paying for medicines?: No Do you have trouble getting transportation to medical appointments?: No Do you have trouble paying your heating and electricity bill?: No Do you have trouble taking care of your child, family member or friend?: No Do you have trouble with day-to-day activities such as bathing, preparing meals, shopping, managing finances, etc.?: No Are you currently unemployed and looking for a job?: No Are you interested in more education?: No Please select the resources that you would like help with: None Currently or been in a relationship where the following occur: No concerns reported THRIVE Score: 0 AUDIT C Alcohol Use Questionnaire (AUDIT-C) 1. How often do you have a drink containing alcohol?: Monthly or less 2. How many drinks containing alcohol do you have on a typical day when you are drinking?: 1 or 2 3. How often do you have six or more drinks on one occasion?: Never Total Score: 1 Score Reviewed/Action Taken: Yes JONNATHAN-7 AMB Questionnaire JONNATHAN-7 Date JONNATHAN - 7 assessed: 02/09/25 Feeling nervous, anxious, or on edge: 0 = Not at all Not being able to stop or control worryin = Not at all Worrying too much about different things: 0 = Not at all Trouble relaxin = Not at all Being so restless that it is hard to sit still: 0 = Not at all Becoming easily annoyed or irritable: 0 = Not at all Feeling afraid as if something awful might happen: 0 = Not at all Total JONNATHAN-7 score (0-4 normal; 5-9 mild; 10-14 moderate; 15-21 severe): 0 Source: Developed by Drs. Niranjan Jacinto, Claudette Gilmore, Octaviano Wagner and colleagues, with an educational piedad from [employer]. Review of Systems Const Denies chills, Denies fatigue, Denies fever(s) and Denies headache(s) ENT Denies dysphagia, Denies dizziness, Denies otalgia, Denies headache(s), Reports neck pain (chronic), Denies odynophagia and Denies sore throat Card Denies chest pain, Denies palpitations and Denies dyspnea Resp Denies chest congestion, Denies cough and Denies dyspnea GI Denies abdominal pain, Denies constipation, Denies dysphagia, Denies heartburn, Denies diarrhea, Denies nausea, Denies odynophagia and Denies vomiting Denies difficulty voiding, Denies nocturia, Denies dysuria and Denies urinary urgency Musc Reports back pain (chronic) and Reports neck pain (chronic) Skin/Breast Denies rash Neuro Denies dizziness and Denies headache(s) Endo Denies fatigue and Denies palpitations Physical exam (Primary Care) Vital Signs: Last Vital Signs Pulse 57 02/09/25 11:09 BP 100/76 02/09/25 11:09 Pulse Ox 98 02/09/25 11:09 Oxygen Delivery Method Room Air 02/09/25 11:09 BMI result Body Mass Index 22.5 Tobacco/Smoking Status: Tobacco use Status Tobacco use date assessed 02/09/25 02/09/25 11:15 Patient Tobacco Use Status Never used Tobacco 02/09/25 11:15 Tobacco use type Cigarette 02/09/25 11:15 e-Cigarette/Vaping Use Never Used 02/09/25 11:15 PHQ-9: PHQ-9 Score PHQ-9: Total score 0 02/09/25 11:56 Depression Screening Interpretation: Negative Thrive Assessment: Date of Thrive Assessment Date Thrive assessed 02/09/25 02/09/25 11:15 Currently or been in a relationship where the following occur: No concerns reported Const General: no acute distress and alert HENMT Ears: TM's normal bilaterally and EAC's normal Throat: Yes posterior oropharynx normal and Yes tonsils normal (no TP congestion) Neck Neck: Yes supple and No lymphadenopathy Thyroid: Thyroid normal Resp Auscultation: clear to auscultation bilaterally, no rales and no wheezes Cardio Rate: regular rate Rhythm: regular rhythm Heart sounds: no murmurs GI Palpation (GI): Soft to palpation and nontender Auscultation: normal bowel sounds General: Yes no CVA tenderness Back/Spine/Pelvis Back: no CVA tenderness Cervical Spine: Cervical spine tenderness Thoracic/Lumbar Spine: lumbar spinal tenderness Sacroiliac joints: bilaterally tender to palpation Skin Rashes: no rashes Extrem General: Yes no clubbing, cyanosis or edema Coding Level of Care Code Est Pt Level 4 (39997) Diagnoses Pure hypercholesterolemia E78.00 Degeneration of intervertebral disc of lumbar region with discogenic back pain M51.360 Disc-related pain type: discogenic back pain only Cervical spondylosis M47.812 History of right breast cancer Z85.3 Additional Codes PHQ-9 - 98296 - PHQ-9 Billing: Yes ([id number]) Assessment & Plan Assessment & Plan (1) Pure hypercholesterolemia: Code(s): E78.00 - Pure hypercholesterolemia, unspecified Category: Medical Plan: Patient was not able to get her follow up labs done prior to her appointment today Reinforced low cholesterol diet Continue Atorvastatin 40 mg QD Patient is again reminded that she needs to get her labs done prior to her appointment in a couple of months - will just have her use her current orders (updated) for her next lab draw (2) Lumbar degenerative disc disease: Code(s): M51.369 - Other intervertebral disc degeneration, lumbar region without mention of lumbar back pain or lower extremity pain Category: Medical Qualifiers: Disc-related pain type: discogenic back pain only Qualified Code(s): M51.360 - Other intervertebral disc degeneration, lumbar region with discogenic back pain only Plan: Patient continues to follow up with [facility] every 3 months or so for back injections that she states provide her with some relief - she is advised to continue following up with [facility] as scheduled for continuing pain management States that she has tried chiropractic Tx in the past without any improvement of her symptoms Continue Oxycodone-Acetaminophen 5-325 mg Q 8 hours PRN for pain - Rx refilled Patient has been maintained on her current pain medication for years through her previous PCP (Dr. Albert) and I have advised patient that I will continue on her current medications for now As previously discussed, we had her sign an updated pain management agreement today (3) Cervical spondylosis: Code(s): M47.812 - Spondylosis without myelopathy or radiculopathy, cervical region Category: Medical Plan: (+) Hx of cervical laminectomy States that her neck pain has been manageable with her current Rx lately (4) History of right breast cancer: Comment: 2011 Code(s): Z85.3 - Personal history of malignant neoplasm of breast Category: Medical Plan: S/P RSL and lumpectomy back in 2011 Continue annual mammography for surveillance Plan Follow up in 2 months Medications: Refilled oxycodone-acetaminophen 5-325 mg (Percocet) partial ok 1 tab PO Q8H 28 days PRN 90 tabs 0RF pain
[2025-02-09 11:09] VITALS: BP 100/76; PULSE 57; O2SAT 98; BMI 22.5
== END 2025-02-09 11:59 | disposition home or self-care (01) ==
LOC: HO.HMCH 11:08
PROVIDERS: PCP Internal Medicine; Visit Provider Internal Medicine
DX: E78.00 Pure hypercholesterolemia, unspecified (principal); M51.360 Other intervertebral disc degeneration, lumbar region with discogenic back pain only; M47.812 Spondylosis without myelopathy or radiculopathy, cervical region; Z85.3 Personal history of malignant neoplasm of breast

== ENCOUNTER → 2025-02-09 11:07 | Outpatient (BNVA) | payer BC, SELFPAY | PROVIDERS: PCP Internal Medicine; Visit Provider Internal Medicine | DX: M51.360 Other intervertebral disc degeneration, lumbar region with discogenic back pain only (principal); M47.812 Spondylosis without myelopathy or radiculopathy, cervical region; G89.29 Other chronic pain; E78.00 Pure hypercholesterolemia, unspecified; Z85.3 Personal history of malignant neoplasm of breast | CPT/HCPCS: 96127 ==